=== PATIENT | female | born 1955 | race Caucasian/White ===

== ENCOUNTER 2017-06-17 06:04 | Day surgery (SDC) | payer OTHER ==
[2017-06-16 11:12] VITALS: BMI 36.7
[2017-06-17] MEDS ORDERED: Fentanyl 100 MCG/2 ML VIAL ONE (07:30)
[2017-06-17] MEDS ORDERED: Propofol 200 MG/20 ML VIAL ONE (16:00)
[2017-06-17] MEDS ORDERED: Lidocaine 1% PF 5 ML VIAL ONE (16:00)
--- NOTE | 2017-06-17 17:06 | OP ---
DATE OF SERVICE: 06/17/2017 PROCEDURE: Esophagogastroduodenoscopy with balloon dilatation. SURGEON: Momo Kaiser M.D. ANESTHESIA: Given by Anesthesiology Department. PREOPERATIVE DIAGNOSES: 1. Dysphagia. 2. Gastroesophageal reflux. POSTOPERATIVE DIAGNOSES: 1. Distal esophageal stricture. 2. Small hiatal hernia. 3. Otherwise normal upper endoscopy. PROCEDURE IN DETAIL: Written consent was obtained prior to procedure. After adequate sedation, the forward-viewing endoscope was advanced down the stomach under direct vision to the second portion of duodenum. Both the second portion and the bulb appeared normal. The pylorus was patent. The gastri c antrum, body, fundus, and cardia all appeared normal. Retroflexion showed a small hiatal hernia wi th a 2 cm waist. The squamocolumnar was noted at approximately 40 cm from the incisors. A concentri c stricture was noted in the lower esophagus. The mid and upper esophagus appeared normal. The endo scope was removed. Dilatation was then performed using a 54-Telugu Spears. Repeat endoscopy did no t show any complication. Repeat dilatation was then performed with a 60-Telugu Spears. The patient tolerated procedure well without any immediate complication. ASSESSMENT: 1. Lower esophageal stricture, mild, status post dilatation with 54 Telugu and a 60-Telugu Spears d ilator. 2. Small hiatal hernia. 3. Otherwise normal upper endoscopy. RECOMMENDATIONS: Continue PPI.
--- NOTE | 2017-06-17 17:55 | OP ---
DATE OF SERVICE: 06/17/2017 PROCEDURES: Colonoscopy with snare polypectomy, biopsy, and dye injection. PREOPERATIVE DIAGNOSIS: History of colon polyps. POSTOPERATIVE DIAGNOSES: 1. A 2 cm flat carpet polyp at the hepatic flexure, not removed. 2. Distal transverse colon polyp, status post polypectomy. 3. Sigmoid diverticulosis coli. PROCEDURE IN DETAIL: A written consent was obtained prior to procedure. After adequate sedation, a rectal exam was performed and it was normal. The endoscope was advanced to the cecum. The quality o f the bowel prep was good. The appendiceal orifice and ileocecal valve were identified and appeared normal. The cecum appeared normal. The ascending appeared normal. In the hepatic flexure, a 2 x 2. 5 cm flat sigmoid lobulated polyp was noted straddling a fold. There was a linear crater in the midd le. Superficial biopsies were obtained in the middle of the crater. A tattoo injection was made at 2 different sites near the polyp to margarita the area. In the distal transverse colon, an 8 mm sessile p olyp was noted then it was removed with electrocautery with good hemostasis. The polyp was not retri eved. The descending colon appeared normal. Scattered diverticula were noted in the sigmoid colon. The rectosigmoid colon and rectal vault were normal including retroflexion. The patient tolerated t he procedure well. ASSESSMENT: 1. A 2 x 2.5 carpet polyp at the hepatic flexure, area marked with tattoo. Polyp has a linear cente r crater and was biopsied to exclude malignancy. 2. Distal transverse colon polyp, status post polypectomy, but not retrieved. 3. Sigmoid diverticulosis coli. RECOMMENDATIONS: Await biopsy result, surgery versus referral for colonoscopy with EMR pending biops y result.
== END 2017-06-17 09:53 | disposition home or self-care (01) ==
LOC: SDC 06:04
PROVIDERS: ATTEND Internal Medicine Gastroenterology
PROC: 0DBL8ZX Excision of Transverse Colon, Via Natural or Artificial Opening Endoscopic, Diagnostic (ICD-10-PCS; principal; 2017-06-17)
PROC: 3E0H8GC Introduction of Other Therapeutic Substance into Lower GI, Via Natural or Artificial Opening Endoscopic (ICD-10-PCS; principal; 2017-06-17)
PROC: 0D758ZZ Dilation of Esophagus, Via Natural or Artificial Opening Endoscopic (ICD-10-PCS; principal; 2017-06-17)
DX: Z12.11 Encounter for screening for malignant neoplasm of colon (principal); D12.3 Benign neoplasm of transverse colon; K57.30 Diverticulosis of large intestine without perforation or abscess without bleeding; K44.9 Diaphragmatic hernia without obstruction or gangrene; K21.9 Gastro-esophageal reflux disease without esophagitis; R11.0 Nausea; E78.5 Hyperlipidemia, unspecified; F32.9 Major depressive disorder, single episode, unspecified; I48.91 Unspecified atrial fibrillation; F41.9 Anxiety disorder, unspecified; I10 Essential (primary) hypertension; E03.9 Hypothyroidism, unspecified; Z79.51 Long term (current) use of inhaled steroids; Z79.82 Long term (current) use of aspirin; Z79.899 Other long term (current) drug therapy; Z88.8 Allergy status to other drugs, medicaments and biological substances; Z98.1 Arthrodesis status; Z98.42 Cataract extraction status, left eye; Z98.41 Cataract extraction status, right eye; Z95.810 Presence of automatic (implantable) cardiac defibrillator; Z96.1 Presence of intraocular lens; Z90.710 Acquired absence of both cervix and uterus; Z90.89 Acquired absence of other organs; Z98.890 Other specified postprocedural states; Z86.010 Personal history of colon polyps
CPT/HCPCS: 88305; J2001; J2704; J3010

== ENCOUNTER 2017-06-19 23:36 | Emergency (ER) | payer OTHER ==
[2017-06-20 01:43] LABS: #Basophils 0.1 thou/uL (0.0-0.2); #Eosinphils 0.3 thou/uL (0.0-0.7); #Lymphocytes 3.2 thou/uL (1.20-3.40); #Monocytes 1.1 thou/uL (0.11-0.59); #Neutrophils 6.7 thou/uL (1.40-6.50); %Eosinophils 2.3 % (0.0-10.0); %Lymphocytes 28.5 % (21.0-51.0); %Monocytes 9.4 % (0.0-10.0); Hematocrit 39.5 % (36.0-47.0); Mean Platelet Volume 6.9 fL (7.4-10.4); Red Blood Cell (RBC) Count 4.16 mill/uL (4.20-5.40); White Blood Cell (WBC) Count 11.3 thou/uL (4.8-10.8)
[2017-06-20 02:08] LABS: ALT (SGPT) 18 U/L (8-55); AST (SGOT) 17 U/L (5-34); Alkaline Phosphatase 81 U/L (40-150); Anion Gap 12 mmol/L (10-20); BUN (Urea Nitrogen) 18 mg/dL (9.8-20.1); Bilirubin, Total 0.2 mg/dL (0.2-1.2); Calc. Creatinine Clearance 0 mL/min (70-130); Calcium 9.8 mg/dL (7.8-10.44); Carbon Dioxide 31 mmol/L (23-31); Chloride 101 mmol/L (98-107); Estimated GFR-MDRD 71; Globulin 3.4 g/dL (2.4-3.5); Protein, Total 7.5 g/dL (6.0-8.3)
== END 2017-06-20 05:00 | disposition home or self-care (01) ==
LOC: ERS 23:36
DX: K64.4 Residual hemorrhoidal skin tags (principal); E03.9 Hypothyroidism, unspecified; E78.5 Hyperlipidemia, unspecified; I10 Essential (primary) hypertension; E66.9 Obesity, unspecified; F41.9 Anxiety disorder, unspecified; F32.9 Major depressive disorder, single episode, unspecified
CPT/HCPCS: 36415; 80053; 85025; 99283

== ENCOUNTER 2017-08-13 08:27 | Outpatient (CLI) | payer OTHER ==
[2017-08-13] MEDS ORDERED: Iopamidol 370 76% 100 ML VIAL ONE (09:00)
--- NOTE | 2017-08-13 10:52 | CT ---
CT OF THE THORAX WITH IV CONTRAST: INDICATION: Concern for nodular densities within the lung with cough, congestion, and fever. COMPARISON: Chest radiograph dated 08/11/17. FINDINGS: There are patchy ground-glass airspace opacities seen throughout both lungs suspicious for areas of f ocal pneumonitis or pneumonia. There is a moderate pericardial effusion. No pathologically enlarged mediastinal, hilar, or axillary lymph nodes are evident. There is postprocedural change of AICD lola cement. There is a moderate-sized hiatal hernia. The adrenal glands are unremarkable. There is fat ty infiltration of the liver. Cholecystectomy clips are seen within the bladder fossa. There is tho racolumbar scoliosis. There is scattered degenerative and osteoarthritic change. IMPRESSION: 1. Scattered areas of ground-glass airspace opacity suspicious for multifocal pneumonia. Recommend CT followup to document resolution. 2. Moderate pericardial effusion. 3. Fatty infiltration of the liver. CODE T POS: [facility]
== END 2017-08-13 08:28 | disposition home or self-care (01) ==
LOC: SCSCT 08:27
PROVIDERS: ATTEND Physician Assistant
DX: R93.8 Abnormal findings on diagnostic imaging of other specified body structures (principal); R91.8 Other nonspecific abnormal finding of lung field; I31.3 Pericardial effusion (noninflammatory); K76.0 Fatty (change of) liver, not elsewhere classified
CPT/HCPCS: 71260

== ENCOUNTER 2017-09-08 09:29 | Outpatient (CLI) | payer OTHER ==
[~2017-09-08 09:29] MED LIST: Iopamidol 370 76% 100 ML VIAL ONE
--- NOTE | 2017-09-08 11:31 | CT ---
ADDENDUM: Bilateral hypertrophic changes in the shoulders, stable since exam of 10-07-15. POS: [facility]
== END 2017-09-08 09:30 | disposition home or self-care (01) ==
LOC: SCSCT 09:29
PROVIDERS: ATTEND Physician Assistant
DX: J18.9 Pneumonia, unspecified organism (principal)
CPT/HCPCS: 71260

== ENCOUNTER 2018-02-28 10:17 | Outpatient (CLI) | payer OTHER ==
--- NOTE | 2018-02-28 15:44 | MMO ---
MAMMOGRAM DIGITAL SCREENING BILATERAL: DATE: 02/28/2018 HISTORY: A 62-year-old female for routine bilateral screening mammogram. COMPARISON: 07/07/2016, 06/21/2015 TECHNIQUE: Digital mammographic views. Computer-aided detection (CAD) utilized. FINDINGS: There are scattered areas of fibroglandular density. There is no evidence of suspicious mass, suspicious calcifications, or architectural distortion. The re is no significant interval change since the prior mammogram. IMPRESSION: 1) BIRADS 1- Negative. 2) Recommendation: routine bilateral annual screening mammogram (unless the patient develops suspicio us clinical findings that would warrant earlier imaging follow up). beti [] POS: [facility]
== END 2018-02-28 10:18 | disposition home or self-care (01) ==
LOC: SCSMAMMO 10:17
PROVIDERS: ATTEND Obstetrics & Gynecology
DX: Z12.31 Encounter for screening mammogram for malignant neoplasm of breast (principal)
CPT/HCPCS: 77067

== ENCOUNTER 2018-03-30 09:14 | Outpatient (CLI) | payer OTHER ==
--- NOTE | 2018-03-30 13:55 | NM ---
NUCLEAR MEDICINE STRESS ONLY WITH EJECTION FRACTION: HISTORY: Chest pain. Shortness of breath. COMPARISON: None. TECHNIQUE: The patient was administered 30 millicuries of technetium 99m sestamibi. Only stress imaging was per formed. FINDINGS: Homogeneous distribution of radiotracer. End-diastolic volume is 108 mL. End-systolic volume is 33 mL. CARDIAC DATA: Ejection fraction is 69%. IMPRESSION: 1. Homogeneous distribution of radiotracer. 2. Ejection fraction 69%. POS: [facility]
[2018-03-30] MEDS ORDERED: Regadenoson 0.4 MG/5 ML SYRINGE ONE (15:23)
== END 2018-03-30 09:15 | disposition home or self-care (01) ==
LOC: NM 09:14
PROVIDERS: ATTEND Family Medicine Adult Medicine
DX: R07.89 Other chest pain (principal); R06.02 Shortness of breath
CPT/HCPCS: 78452; 93017; A9500; J2785

== ENCOUNTER 2019-05-10 10:07 | Day surgery (SDC) | payer OTHER ==
[2019-05-09 10:14] VITALS: BMI 37.3
--- NOTE | 2019-05-10 13:17 | OP ---
DATE OF PROCEDURE: 05/10/2019 PROCEDURES PERFORMED: Colonoscopy with snare polypectomy and tattoo injection. PREMEDICATION: Given by Anesthesiology Department. 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 POSTPROCEDURE DIAGNOSES: 1. A 3 x 4 cm flat polyp with evidence of scarring at the base of right hepatic flexure near previous tattoo. 2. Small 4 mm sessile polyp in the sigmoid, status post polypectomy. DESCRIPTION OF PROCEDURE: Written consents were obtained prior to procedure. After adequate sedation, rectal exam performed was normal. The endoscope was advanced to the cecum. The quality of the bowel prep was good. The cecum and ascending colon appeared normal. Near the hepatic flexure, at the previously tattooed area, a 3 x 4 semi-raised flat polyp was noted with finger-like projection with area of scarring at the base. Further tattoo was placed in the local area. The transverse, descending colon appeared normal. In the sigmoid colon, a small 4 mm sessile polyp was noted and was removed with a cold snare. The polyp was not retrieved. The sigmoid colon was somewhat redundant. The rectosigmoid area was normal including retroflexion. The patient tolerated the procedure well. ASSESSMENT: 1. A 3 x 4 flat carpet like polyp near hepatic flexure, status post previous endoscopic mucosal resection in 2017. 2. Sigmoid polyp, removed but not retrieved. 3. Sigmoid diverticulosis. RECOMMENDATION: Refer to surgery as she had EMR in [place] now with recurrence. Job ID: [id number] [facility] HOSPITALEdilberto
== END 2019-05-10 13:55 | disposition home or self-care (01) ==
LOC: SDC 10:07
PROVIDERS: ATTEND Internal Medicine Gastroenterology
PROC: 0DBN8ZX Excision of Sigmoid Colon, Via Natural or Artificial Opening Endoscopic, Diagnostic (ICD-10-PCS; principal; 2019-05-10)
PROC: 3E0H8GC Introduction of Other Therapeutic Substance into Lower GI, Via Natural or Artificial Opening Endoscopic (ICD-10-PCS; principal; 2019-05-10)
DX: Z12.11 Encounter for screening for malignant neoplasm of colon (principal); K63.5 Polyp of colon; K57.30 Diverticulosis of large intestine without perforation or abscess without bleeding; F41.9 Anxiety disorder, unspecified; I48.91 Unspecified atrial fibrillation; F32.9 Major depressive disorder, single episode, unspecified; K21.9 Gastro-esophageal reflux disease without esophagitis; E78.5 Hyperlipidemia, unspecified; I10 Essential (primary) hypertension; E03.9 Hypothyroidism, unspecified; Z86.010 Personal history of colon polyps; Z79.82 Long term (current) use of aspirin; Z79.899 Other long term (current) drug therapy; Z88.2 Allergy status to sulfonamides; Z88.8 Allergy status to other drugs, medicaments and biological substances; Z95.810 Presence of automatic (implantable) cardiac defibrillator

== ENCOUNTER 2019-06-29 13:52 | Outpatient (CLI) | payer OTHER ==
[2019-06-29 15:30] LABS: #Basophils 0.1 thou/uL (0.0-0.2); #Eosinphils 0.3 thou/uL (0.0-0.7); #Lymphocytes 2.6 thou/uL (1.20-3.40); #Monocytes 0.8 thou/uL (0.11-0.59); #Neutrophils 4.3 thou/uL (1.40-6.50); %Basophils 1.7 % (0.0-1.0); %Eosinophils 4.1 % (0.0-10.0); %Monocytes 9.6 % (0.0-10.0); %Neutrophils 52.6 % (42.0-75.0); Hemoglobin 14.6 g/dL (12.0-16.0); Mean Corpuscular HGB CONC 34.3 g/dL (32.0-36.0); Mean Corpuscular Hemoglobin 32.9 pg (27.0-31.0); Mean Corpuscular Volume 95.9 fL (78.0-98.0); Mean Platelet Volume 6.7 fL (7.4-10.4); Platelet Count 452 thou/uL (130-400); RBC Distribution Width 12.4 % (11.5-14.5); Red Blood Cell (RBC) Count 4.44 mill/uL (4.20-5.40); White Blood Cell (WBC) Count 8.2 thou/uL (4.8-10.8)
[2019-06-29 15:39] LABS: Hemoglobin A1c 5.2 % (4.0-6.0)
[2019-06-29 15:55] LABS: Anion Gap 12 mmol/L (10-20); BUN (Urea Nitrogen) 16 mg/dL (9.8-20.1); Calc. Creatinine Clearance 0 mL/min (70-130); Carbon Dioxide 29 mmol/L (23-31); Chloride 103 mmol/L (98-107); Estimated GFR-MDRD 53; Glucose 79 mg/dL (80-115); Potassium 4.1 mmol/L (3.5-5.1); Sodium 140 mmol/L (136-145)
== END 2019-06-29 13:53 | disposition home or self-care (01) ==
LOC: LABBT 13:52
PROVIDERS: ATTEND Surgery
DX: Z01.812 Encounter for preprocedural laboratory examination (principal); K63.9 Disease of intestine, unspecified
CPT/HCPCS: 80048; 83036; 85025

== ENCOUNTER 2019-06-30 13:15 | Inpatient (IN) | payer OTHER ==
[2019-06-29 14:18] VITALS: BMI 36.7
[2019-07-06] MEDS ORDERED: Midazolam HCl 2 mg/2 ml Vial ONE ×2 (06:35→07:10)
[2019-07-06] MEDS ORDERED: Fentanyl 100 MCG/2 ML VIAL ONE ×3 (06:35→10:05)
[2019-07-06] MEDS ORDERED: ceFOXitin 2 GM/50 ML Duplex BAG ONE (06:42)
[2019-07-06] MEDS ORDERED: Sodium Chloride 0.9% 0 ML ONE (06:42)
[2019-07-06] MEDS ORDERED: Ondansetron PF 4 MG/2 ML Vial ONE ×2 (07:19→11:10)
[2019-07-06] MEDS ORDERED: cefOXitin 2 GM VIAL ONE (09:15)
[2019-07-06] MEDS ORDERED: SUGAMMADEX SODIUM 500 MG/5 ML VIAL ONE (09:38)
[2019-07-06] MEDS ORDERED: HYDROmorphone 2 MG/ML VIAL SLOW IVP PRN (09:58)
[2019-07-06] MEDS ORDERED: Promethazine HCl 25 MG/ML VIAL SLOW IVP PRN (09:58)
[2019-07-06] MEDS ORDERED: Ondansetron HCl/PF 4 MG/2 ML Vial IVP PRN (09:58)
[2019-07-06] MEDS ORDERED: Promethazine HCl 25 MG/ML VIAL IM PRN ×2 (09:58→11:49)
[2019-07-06] MEDS ORDERED: HYDROmorphone 0.5 MG/0.5 ML SYRINGE ONE (10:05)
[2019-07-06] MEDS ORDERED: D5 1/2 NS w/20 mEq KCL 1,000 ML ONE (10:06)
[2019-07-06] MEDS ORDERED: Promethazine HCl 25 MG/ML VIAL ONE (10:07)
--- NOTE | 2019-07-06 10:17 | OP ---
DATE OF PROCEDURE: 07/06/2019 PREOPERATIVE DIAGNOSIS: Hepatic flexure colon mass. POSTOPERATIVE DIAGNOSIS: Hepatic flexure colon mass. PROCEDURE PERFORMED: Laparoscopic converted to open right colectomy with isoperistaltic ileocolonic anastomosis. ANESTHESIA: General. BLOOD LOSS: 150 mL. COMPLICATIONS: None. FINDINGS: The patient had a very tortuous ascending colon and significant adhesions in this area from prior surgery. She also after taken the ileocolic vessels near their base, had ischemia to the terminal ileum, so more proximal staple line had to be performed. DESCRIPTION OF PROCEDURE: The patient was taken to the operating room and laid supine on the operating room table. She underwent preop placement of TAP blocks in the holding area, taken to the operating room and laid supine on operating room table. After general anesthetic was obtained, a Dozier was placed. The abdomen was prepped and draped in a sterile fashion. Left subcostal 5 mm Optiview trocar was placed in usual fashion. High-flow pneumoperitoneum was obtained. Left lateral 11 mm assist port was placed. Camera port was placed in left umbilicus. Robot assist ports were placed in left lower quadrant. The 5 mm subcostal port switched out to the robot stapler port. The robot was brought in and all ports were docked to the robot. The patient had some adhesions in the umbilicus. The omentum was fused to the posterior umbilical fascia. Some of these adhesions were taken down. This was very bulky omental fat in this area. There were also fatty adhesions over the top of the cecum down into the pelvis. The cecum was very high and very tortuous. The peritoneum was incised on the medial aspect of the ascending colon mesentery and taken using the robot vessel sealer. Dissection towards the duodenum was very difficult due to the tortuous nature of the colon and multiple interloop adhesions. Decision was made to open. There was also more ischemia than typically seen in the area of the terminal ileum after taken the ileocolic vessel. Midline incision was made. All adhesions were taken down in the abdomen. The hepatic flexure was fully mobilized. The duodenum was excluded from the dissection and not injured. There was ischemia to the last 12 inches or so of the small intestines, so this made for a more proximal staple line. The proximal transverse colon was fully dissected. AUTUMN 75 stapler was fired across the small bowel area of no ischemia and across the proximal transverse colon. The resultant of final mesentery was taken using the Impact LigaSure. An isoperistaltic anastomosis was performed using a AUTUMN 75 stapler. The common enterotomy was closed using Vicryl suture. The mesenteric defect was closed using silk sutures. The small bowel was run proximally to the ligament of Treitz without evidence of further injury. There was no bleeding in the abdomen and again all adhesions were taken down, so there was no tension on the anastomosis. The abdomen was irrigated. There was no ongoing bleeding. Surgeon and all assists changed gloves. The midline fascia was closed using #1 PDS from the top and bottom and tied in the middle. Subcutaneous tissues were irrigated and closed using 4-0 Monocryl and Dermabond. All other incisions were closed using 4-0 Monocryl and Dermabond. A GraNee needle and 0 Vicryl tie had been used to close the robot stapler port prior to opening. All instrument counts, needle counts, lap counts were correct. The patient was sent to Recovery in stable condition. Job ID: [id number]
[2019-07-06] MEDS: D5 1/2 NS w/20 mEq KCL 1,000 ML IV SCH ×2 (11:35→17:34)
[2019-07-06] MEDS ORDERED: hydrALAZINE 20 MG/ML VIAL SLOW IVP PRN (11:49)
[2019-07-06] MEDS ORDERED: Ondansetron PF 4 MG/2 ML Vial IVP PRN (11:49)
[2019-07-06] MEDS ORDERED: Fentanyl 100 MCG/2 ML VIAL SLOW IVP PRN (11:49)
[2019-07-06] MEDS ORDERED: Acetaminophen 1,000 MG in Premix Bag 1 BAG IVPB SCH (12:00)
[2019-07-06] MEDS ORDERED: ePHEDrine/0.9% NaCl/PF SYRINGE 50 mg/10 ml ONE (13:46)
[2019-07-06] MEDS ORDERED: Ketorolac Tromethamine 30 MG/ML VIAL ONE (13:46)
[2019-07-06] MEDS ORDERED: PROPOFOL 200 MG/20 ML VIAL ONE (13:46)
[2019-07-06] MEDS ORDERED: Rocuronium Bromide 10 MG/ML (10ML VIAL) ONE (13:46)
[2019-07-06] MEDS ORDERED: Lidocaine 1% PF 5 ML VIAL ONE (13:46)
[2019-07-06] MEDS ORDERED: Metoclopramide HCl 10 MG/2 ML VIAL ONE (13:46)
[2019-07-06] MEDS ORDERED: Glycopyrrolate 0.2 MG/ML 5 ML SYRINGE ONE (13:46)
[2019-07-06] MEDS ORDERED: PHENYLEPHRINE-NS 100 MCG/ML 10 ML SYRINGE ONE (13:46)
[2019-07-06] MEDS ORDERED: Dexamethasone 20 MG/5 ML VIAL ONE (13:46)
[2019-07-06] MEDS ORDERED: Bupivacaine HCl 0.5%/Epinephrine 1:200,000/PF 30 ml Vial ONE (13:47)
[2019-07-06] MEDS ORDERED: cefOXitin Sodium/Dextrose,Iso 2 GM in Premix Bag 1 BAG IVPB SCH (14:00)
[2019-07-06] MEDS ORDERED: cefOXitin 2 GM in Sodium Chloride 0.9% 100 ML IVPB SCH (14:00)
[2019-07-06] MEDS: Acetaminophen 1,000 MG in Premix Bag 1 BAG IVPB SCH ×2 (14:09→20:10)
[2019-07-06] MEDS: Fentanyl 100 MCG/2 ML VIAL SLOW IVP PRN ×4 (15:43→23:10)
[2019-07-06] MEDS: cefOXitin Sodium/Dextrose,Iso 2 GM in Premix Bag 1 BAG IVPB SCH (17:18)
[2019-07-06] MEDS: Enoxaparin Sodium 40 MG/0.4 ML SYRINGE SC SCH (20:31)
[2019-07-06] MEDS: Flecainide 50 MG TAB PO SCH (20:31)
[2019-07-06] MEDS: NIFEdipine XL 60 MG TAB PO SCH (20:31)
[2019-07-06] MEDS: Famotidine/PF 20 mg/2ml Vial SLOW IVP SCH (20:31)
[2019-07-06] MEDS: Famotidine 20 MG TAB PO SCH (20:32)
[2019-07-07] MEDS: cefOXitin Sodium/Dextrose,Iso 2 GM in Premix Bag 1 BAG IVPB SCH ×3 (00:25→18:42)
[2019-07-07] MEDS ORDERED: Melatonin 3 MG TAB PO SCH (00:30)
[2019-07-07] MEDS: Acetaminophen 1,000 MG in Premix Bag 1 BAG IVPB SCH ×3 (01:26→19:26)
[2019-07-07] MEDS: D5 1/2 NS w/20 mEq KCL 1,000 ML IV SCH ×2 (01:26→13:12)
[2019-07-07] MEDS: Fentanyl 100 MCG/2 ML VIAL SLOW IVP PRN ×6 (01:52→13:11)
[2019-07-07 05:36] LABS: #Lymphocytes 2.4 thou/uL (1.20-3.40); #Monocytes 1.4 thou/uL (0.11-0.59); #Neutrophils 11.1 thou/uL (1.40-6.50); %Basophils 0.1 % (0.0-1.0); %Eosinophils 0.2 % (0.0-10.0); %Monocytes 9.2 % (0.0-10.0); %Neutrophils 74.6 % (42.0-75.0); Hemoglobin 11.1 g/dL (12.0-16.0); Mean Corpuscular HGB CONC 33.4 g/dL (32.0-36.0); Mean Corpuscular Hemoglobin 32.6 pg (27.0-31.0); Mean Corpuscular Volume 97.5 fL (78.0-98.0); Mean Platelet Volume 7.4 fL (7.4-10.4); Platelet Count 303 thou/uL (130-400); RBC Distribution Width 12.1 % (11.5-14.5); White Blood Cell (WBC) Count 14.9 thou/uL (4.8-10.8)
[2019-07-07 05:50] LABS: Anion Gap 9 mmol/L (10-20); BUN (Urea Nitrogen) 7 mg/dL (9.8-20.1); Calc. Creatinine Clearance 120 mL/min (70-130); Calcium 8.5 mg/dL (7.8-10.44); Carbon Dioxide 27 mmol/L (23-31); Chloride 106 mmol/L (98-107); Estimated GFR-MDRD 65; Glucose 110 mg/dL (80-115); Potassium 3.9 mmol/L (3.5-5.1); Sodium 138 mmol/L (136-145)
--- NOTE | 2019-07-07 07:09 | PDOC.GSPN ---
Surgery Progress Note: Subj - Subjective Patient reports: still having pain Narrative: Ms. Thakkar is a 63 year old female who is POD #1 from laproscopic conversion to open right colectomy with ileocolonic anastomosis. She reports persistent pain this morning, currently rating it a 6/10 compared to "12/10" yesterday. Pain is being treated with Tylenol and Fentanyl, which helps. She has not passed flatus or bowel movement yet. Tolerating clear liquids very well. She ambulated to the nursing station yesterday without issues. Dozier is still in place. Patient denies chest pain, nausea, vomiting, dyspnea, dizziness, fever, and chills. Surgery Progress Note: Obj - Vital signs Vital signs: Vital Signs - Most Recent Temp Pulse Resp BP Pulse Ox 99.2 F 91 18 117/72 93 L 07/07/19 03:50 07/07/19 03:50 07/07/19 03:50 07/07/19 03:50 07/07/19 03:50 - Physical Exam General: moderate pain ENT: normal mucosa Cardiovascular: regular rate and rhythm, no murmur, other (No edema of lower extremities. Pedal pulses 2+ bilaterally and symmetrically.) Respiratory: clear to auscultation, normal expansion, normal respiratory effort , breath sounds present (No rales, rhonchi, or wheezes.) Abdomen: soft, nondistended, tender, other (Absent bowel sounds.) Integumentary: no rash Psychiatric: oriented to time, oriented to person, oriented to place Wound: dressing clean,dry,intact, healing well (No surrounding erythema, purulent discharge, or bleeding. Mild brusing around incisions is present.) Surgery Progress Note: Results - Labs Result Diagrams: 07/07/19 05:00 07/07/19 05:00 Lab results: Laboratory Results - last 24 hr 07/07/19 07/07/19 05:00 05:00 WBC 14.9 H RBC 3.40 L Hgb 11.1 L Hct 33.2 L MCV 97.5 MCH 32.6 H MCHC 33.4 RDW 12.1 Plt Count 303 MPV 7.4 Neutrophils % 74.6 Lymphocytes % 16.0 L Monocytes % 9.2 Eosinophils % 0.2 Basophils % 0.1 Neutrophils # 11.1 H Lymphocytes # 2.4 Monocytes # 1.4 H Eosinophils # 0.0 Basophils # 0.0 Sodium 138 Potassium 3.9 Chloride 106 Carbon Dioxide 27 Anion Gap 9 L BUN 7 L Creatinine 0.88 Estimated GFR (MDRD) 65 Glucose 110 Calcium 8.5 Surgery Progress Note: A/P - Plan Plan: Ms. Thakkar is a 63 year old female who is POD #1 from laproscopic conversion to open right colectomy with ileocolonic anastomosis. -Continues to have pain. Eating and ambulating well. No bowel movement or flatus. -May advance diet to full liquids. -Monitor for bowel movements and flatus. -Discontinue Dozier catheter -Monitor pain -Continue ambulation and walking Hyperthyroidism -Currently on Levothyroxine & Otley Thyroid Addendum - Physician - Physician Attestation Date/Time: 07/07/19 3148 I personally performed or re-performed the physical examination and medical decision making. I have verified all student documentation or findings, including history, physical exam and/or medical decision making. Pain not very well controlled. will have anesthesia put her on a HOP STRAINER
[2019-07-07] MEDS: Levothyroxine 150 MCG TAB PO SCH (08:22)
[2019-07-07] MEDS: Thyroid 60 MG TAB PO SCH (08:22)
[2019-07-07] MEDS: Famotidine 20 MG TAB PO SCH ×2 (08:22→20:21)
[2019-07-07] MEDS: NIFEdipine XL 60 MG TAB PO SCH ×2 (08:22→20:21)
[2019-07-07] MEDS: Famotidine/PF 20 mg/2ml Vial SLOW IVP SCH ×2 (08:23→22:28)
[2019-07-07] MEDS: Flecainide 50 MG TAB PO SCH ×2 (11:01→20:22)
[2019-07-07] MEDS ORDERED: HYDROcodone/Acetaminophen 7.5/325 mg Tablet PO PRN (12:35)
[2019-07-07] MEDS ORDERED: Ondansetron PF 4 MG/2 ML Vial IVP PRN (15:33)
[2019-07-07] MEDS ORDERED: Naloxone HCl 0.4 mg/ml Vial IV PRN ×2 (15:33→16:49)
[2019-07-07] MEDS ORDERED: Promethazine HCl 25 MG/ML VIAL IM PRN (15:33)
[2019-07-07] MEDS ORDERED: diphenhydrAMINE 50 MG/ML VIAL IM PRN ×2 (15:33→16:49)
[2019-07-07] MEDS ORDERED: Zolpidem Tartrate 5 MG TAB PO PRN ×2 (15:33→16:49)
[2019-07-07] MEDS ORDERED: fentaNYL Citrate/PF 2,000 MCG in Sodium Chloride 0.9% 60 ML IV PRN (15:33)
[2019-07-07] MEDS ORDERED: diphenhydrAMINE 50 MG/ML VIAL IVP PRN ×2 (15:33→16:49)
[2019-07-07] MEDS ORDERED: diphenhydrAMINE 25 MG CAP PO PRN ×2 (15:33→16:49)
[2019-07-07] MEDS ORDERED: Communication Order-Pharmacy FS SCH ×2 (15:45→17:00)
[2019-07-07] MEDS: fentaNYL Citrate/PF 2,000 MCG in Sodium Chloride 0.9% 60 ML IV PRN (18:34)
[2019-07-07] MEDS: Enoxaparin Sodium 40 MG/0.4 ML SYRINGE SC SCH (20:21)
[2019-07-07] MEDS: Melatonin 3 MG TAB PO PRN (22:00)
[2019-07-08] MEDS: Acetaminophen 1,000 MG in Premix Bag 1 BAG IVPB SCH ×5 (00:06→23:28)
[2019-07-08] MEDS: D5 1/2 NS w/20 mEq KCL 1,000 ML IV SCH ×2 (00:07→17:24)
[2019-07-08] MEDS: cefOXitin Sodium/Dextrose,Iso 2 GM in Premix Bag 1 BAG IVPB SCH ×3 (00:07→17:23)
[2019-07-08 05:21] LABS: #Basophils 0.1 thou/uL (0.0-0.2); #Eosinphils 0.7 thou/uL (0.0-0.7); #Lymphocytes 3.5 thou/uL (1.20-3.40); #Monocytes 1.7 thou/uL (0.11-0.59); #Neutrophils 9.3 thou/uL (1.40-6.50); %Basophils 0.5 % (0.0-1.0); %Eosinophils 4.9 % (0.0-10.0); %Lymphocytes 22.7 % (21.0-51.0); %Monocytes 11.1 % (0.0-10.0); %Neutrophils 60.8 % (42.0-75.0); Hemoglobin 11.6 g/dL (12.0-16.0); Mean Corpuscular HGB CONC 33.7 g/dL (32.0-36.0); Mean Corpuscular Hemoglobin 33.6 pg (27.0-31.0); Mean Corpuscular Volume 99.7 fL (78.0-98.0); Mean Platelet Volume 8.1 fL (7.4-10.4); Platelet Count 302 thou/uL (130-400); RBC Distribution Width 12.3 % (11.5-14.5); Red Blood Cell (RBC) Count 3.45 mill/uL (4.20-5.40); White Blood Cell (WBC) Count 15.3 thou/uL (4.8-10.8)
[2019-07-08 05:42] LABS: Anion Gap 14 mmol/L (10-20); BUN (Urea Nitrogen) 7 mg/dL (9.8-20.1); Calc. Creatinine Clearance 124 mL/min (70-130); Calcium 9.1 mg/dL (7.8-10.44); Carbon Dioxide 23 mmol/L (23-31); Chloride 107 mmol/L (98-107); Estimated GFR-MDRD 68; Glucose 98 mg/dL (80-115); Potassium 4.3 mmol/L (3.5-5.1); Sodium 140 mmol/L (136-145)
--- NOTE | 2019-07-08 08:45 | PRG ---
DATE OF SERVICE: 07/08/2019 SUBJECTIVE: Ms. Thakkar's pain is better controlled with the WINDING LATHE OPERATOR. Her family notes that she was more sedated last night, but she has still been walking, having loose stools. OBJECTIVE: VITAL SIGNS: She is afebrile. Her pulse is 95 to 103, respirations are 12, O2 saturation is 92 on 2 L, it dropped overnight when she was not wearing her CPAP. Blood pressure 110/74. She is voiding regularly with the catheter out. She has had a couple loose stools. ABDOMEN: Soft, minimally distended. Occasional bowel sounds. Midline wound is healing well. There is some bruising, but no infection. LABORATORY DATA: White blood cell count is 15, hemoglobin 11, and platelet count is 302. Sodium 140, potassium 4.3, and creatinine 0.85. ASSESSMENT: Postop day 2, right colectomy for unresectable polyp, multiple abdominal adhesions, requiring open surgery. PLAN: Continue to encourage ambulation. She has actually been doing very well with that. We will have anesthesia drop her WINDING LATHE OPERATOR dose slightly. Continue full liquids for now. Dr. Henning is going to see her tomorrow for me. I will return on Wednesday. Job ID: [id number]
[2019-07-08] MEDS ORDERED: Saccharomyces boulardii 250 MG CAP PO SCH (09:00)
[2019-07-08] MEDS: NIFEdipine XL 60 MG TAB PO SCH ×2 (09:33→21:24)
[2019-07-08] MEDS: Flecainide 50 MG TAB PO SCH ×2 (09:33→21:25)
[2019-07-08] MEDS: DULoxetine 30 MG CAP PO SCH (09:34)
[2019-07-08] MEDS: Thyroid 60 MG TAB PO SCH (09:34)
[2019-07-08] MEDS: Levothyroxine 150 MCG TAB PO SCH (09:34)
[2019-07-08] MEDS: Famotidine 20 MG TAB PO SCH ×2 (09:34→21:24)
[2019-07-08] MEDS: PARoxetine 20 MG TAB PO SCH (09:34)
[2019-07-08] MEDS: Famotidine/PF 20 mg/2ml Vial SLOW IVP SCH ×2 (09:40→21:25)
[2019-07-08] MEDS: fentaNYL Citrate/PF 2,000 MCG in Sodium Chloride 0.9% 60 ML IV PRN (18:36)
[2019-07-08] MEDS: Enoxaparin Sodium 40 MG/0.4 ML SYRINGE SC SCH (21:24)
[2019-07-08] MEDS: Ondansetron PF 4 MG/2 ML Vial IVP PRN (23:28)
--- NOTE | 2019-07-08 23:58 | PRG ---
DATE OF SERVICE: 07/08/2019 SUBJECTIVE: The patient was seen this evening during rounds. Trauma and Dr. Henning are covering for Dr. Glasgow. At the time of my evaluation, the patient reported she had had multiple loose stools and had a little bit of nausea, but generally she reported she felt like she was getting better. She is ambulating and sitting up in a chair regularly. OBJECTIVE: VITAL SIGNS: Temperature 97.8, pulse 115, respirations 16, oxygen saturation 94% on room air, blood pressure 127/68. GENERAL: Well-appearing, middle-aged female, lying in bed with no signs of acute distress. PULMONARY: Equal chest rise and fall. No signs of acute respiratory distress. ASSESSMENT: Postop day #2, status post open right colectomy with ileocolic anastomosis secondary to hepatic flexure colon mass. PLAN: Continue current full liquid diet as recommended by Dr. Glasgow. Continue fentanyl ELECTRONIC DRAFTER overnight. We will consider transitioning over to oral pain medications tomorrow. Continue current home medications. The patient requesting to have Florastor b.i.d. as that is how she takes it at home. Dose adjustments will be made. Continue walking and sitting up in chair as much as possible. Job ID: [id number]
[2019-07-09] MEDS: cefOXitin Sodium/Dextrose,Iso 2 GM in Premix Bag 1 BAG IVPB SCH ×4 (00:02→23:54)
[2019-07-09] MEDS: Acetaminophen 1,000 MG in Premix Bag 1 BAG IVPB SCH (05:54)
[2019-07-09] MEDS: Famotidine/PF 20 mg/2ml Vial SLOW IVP SCH ×2 (09:14→21:12)
[2019-07-09] MEDS ORDERED: traMADol HCl 50 MG TAB PO SCH (09:45)
[2019-07-09] MEDS: Ondansetron PF 4 MG/2 ML Vial IVP PRN (10:01)
[2019-07-09] MEDS: Famotidine 20 MG TAB PO SCH ×2 (10:02→21:11)
[2019-07-09] MEDS: DULoxetine 30 MG CAP PO SCH (10:02)
[2019-07-09] MEDS: Flecainide 50 MG TAB PO SCH ×2 (10:02→21:11)
[2019-07-09] MEDS: Saccharomyces boulardii 250 MG CAP PO SCH ×2 (10:02→21:10)
[2019-07-09] MEDS: PARoxetine 20 MG TAB PO SCH (10:02)
[2019-07-09] MEDS: NIFEdipine XL 60 MG TAB PO SCH ×2 (10:03→21:10)
[2019-07-09] MEDS: Thyroid 60 MG TAB PO SCH (10:03)
[2019-07-09] MEDS: Levothyroxine 150 MCG TAB PO SCH (10:03)
[2019-07-09] MEDS: traMADol HCl 50 MG TAB PO SCH ×3 (10:17→22:09)
[2019-07-09] MEDS: Promethazine HCl 25 MG/ML VIAL IM PRN (11:46)
[2019-07-09] MEDS: Acetaminophen 500 MG TAB PO SCH ×3 (11:47→23:54)
--- NOTE | 2019-07-09 14:37 | PRG ---
DATE OF SERVICE: 07/09/2019 SUBJECTIVE: Ms. Thakkar is a 63-year-old woman, postoperative day #3, status post laparoscopic converted to open right colectomy with primary anastomosis. The patient reports better pain control today on using EARLY CHILDHOOD TEACHER. She reports multiple loose bowel movements, but denies any flatus. She denies any nausea or vomiting. Urinary output is adequate for the patient's age and weight. OBJECTIVE: VITAL SIGNS: Today include blood pressure 112/77, pulse 93, respiratory rate is 16, temperature is 99 degrees Fahrenheit, and oxygen saturation is 95% on 3 L by nasal cannula oxygen. HEENT: Reveals pupils are equal, round, and reactive to light and accommodation. NECK: She has no jugular venous distention noted. HEART: Reveals regular rate and rhythm. No murmurs or gallops auscultated. LUNGS: Clear to auscultation bilaterally. Breathing, regular and unlabored. ABDOMEN: Soft and obese with acceptable incisional tenderness to palpation. She has no peritoneal signs on examination. NEUROLOGIC: Reveals no focal deficits present. Incisions remain intact, clean, and dry. LABORATORY FINDINGS: Today include a CBC with 15,300 white blood cells, hemoglobin and hematocrit are 11.6 and 34.5 respectively, and platelet count is 302,000. Metabolic profile; sodium 140, potassium 4.3, chloride is 107, bicarb is 23, BUN is 7, creatinine is 0.85, and glucose is 98. IMPRESSION: 1. Postop day #3, status post laparoscopic converted to open right colectomy with primary ileocolostomy. 2. The patient is hemodynamically stable. PLAN: 1. Increase activity as the patient is encouraged to ambulate briskly in the hallway to promote better motility including passages of flatus. 2. We will continue with full liquid diet at this time. We will start the patient on oral analgesics and discontinue the EARLY CHILDHOOD TEACHER once adequate pain control was achieved with oral analgesics. Above findings and plan discussed with the patient, who indicates understanding of the information given. I have answered her questions. Job ID: [id number]
[2019-07-09] MEDS: Enoxaparin Sodium 40 MG/0.4 ML SYRINGE SC SCH (21:11)
[2019-07-09] MEDS: Ibuprofen 600 MG TAB PO SCH (22:09)
[2019-07-10] MEDS: fentaNYL Citrate/PF 2,000 MCG in Sodium Chloride 0.9% 60 ML IV PRN (00:52)
--- NOTE | 2019-07-10 01:33 | PRG ---
DATE OF SERVICE: 07/09/2019 SUBJECTIVE: The patient was seen this evening, lying in bed and resting comfortably. She reported her pain was well controlled. She is still having diarrhea. OBJECTIVE: VITAL SIGNS: Temperature 99.3, pulse 103, respirations 18, oxygen saturation 98% on 2 L nasal cannula, blood pressure 114/76. GENERAL: Well-appearing elderly female, lying in bed with no signs of acute distress. PULMONARY: Equal chest rise and fall. No signs of acute respiratory distress. ASSESSMENT: Postop day #3 status post open right colectomy with ileocolic anastomosis due to colon mass. PLAN: Continue current diet and pain regimen. Continue physical and occupational therapy. Continue to mobilize as much as possible. Job ID: [id number]
[2019-07-10] MEDS: traMADol HCl 50 MG TAB PO SCH ×4 (04:19→22:06)
[2019-07-10] MEDS: traMADol HCl 50 MG TAB PO PRN ×2 (04:20→22:07)
[2019-07-10] MEDS: D5 1/2 NS w/20 mEq KCL 1,000 ML IV SCH (04:20)
[2019-07-10] MEDS: Ibuprofen 600 MG TAB PO SCH (05:49)
[2019-07-10] MEDS: Acetaminophen 500 MG TAB PO SCH ×4 (05:49→23:45)
[2019-07-10 06:00] LABS: Band 2 % (5-11); Eosinophils 11 % (0-10); Lymphocytes 26 % (21-51); MDiff Complete? YES; Mean Corpuscular HGB CONC 33.4 g/dL (32.0-36.0); Mean Corpuscular Hemoglobin 32.9 pg (27.0-31.0); Mean Corpuscular Volume 98.3 fL (78.0-98.0); Mean Platelet Volume 7.6 fL (7.4-10.4); Monocytes 7 % (0-10); Neutrophil 54 % (42-75); Platelet Count 316 thou/uL (130-400); RBC Distribution Width 12.1 % (11.5-14.5); Red Blood Cell (RBC) Count 3.03 mill/uL (4.20-5.40); White Blood Cell (WBC) Count 9.3 thou/uL (4.8-10.8)
[2019-07-10] MEDS: Thyroid 60 MG TAB PO SCH (07:58)
[2019-07-10] MEDS: Levothyroxine 150 MCG TAB PO SCH (07:58)
[2019-07-10] MEDS: cefOXitin Sodium/Dextrose,Iso 2 GM in Premix Bag 1 BAG IVPB SCH (08:00)
[2019-07-10] MEDS ORDERED: Ibuprofen 600 MG TAB PO PRN (09:03)
[2019-07-10] MEDS: Saccharomyces boulardii 250 MG CAP PO SCH ×2 (10:14→20:29)
[2019-07-10] MEDS: Flecainide 50 MG TAB PO SCH ×2 (10:14→20:28)
[2019-07-10] MEDS: NIFEdipine XL 60 MG TAB PO SCH ×2 (10:14→20:29)
[2019-07-10] MEDS: DULoxetine 30 MG CAP PO SCH (10:14)
[2019-07-10] MEDS: PARoxetine 20 MG TAB PO SCH (10:14)
[2019-07-10] MEDS: Famotidine 20 MG TAB PO SCH ×2 (10:14→20:28)
[2019-07-10] MEDS: Famotidine/PF 20 mg/2ml Vial SLOW IVP SCH ×2 (10:15→20:30)
[2019-07-10] MEDS: Ondansetron PF 4 MG/2 ML Vial IVP PRN (10:19)
[2019-07-10] MEDS ORDERED: HYDROcodone/Acetaminophen 10/325 mg Tablet PO PRN ×2 (11:49)
[2019-07-10] MEDS ORDERED: Fentanyl 100 MCG/2 ML VIAL SLOW IVP PRN (11:51)
[2019-07-10] MEDS: Promethazine HCl 25 MG/ML VIAL IM PRN ×2 (11:52→18:26)
--- NOTE | 2019-07-10 13:34 | PDOC.GSPN ---
Surgery Progress Note: Subj - Subjective Patient reports: no new complaints, tolerating liquids well, pain is less Surgery Progress Note: Obj - Vital signs Vital signs: Vital Signs - Most Recent Temp Pulse Resp BP Pulse Ox 97.8 F 96 16 113/77 94 L 07/10/19 11:45 07/10/19 11:45 07/10/19 11:45 07/10/19 11:45 07/10/19 11:45 - Physical Exam General: no distress Cardiovascular: regular rate and rhythm Respiratory: clear to auscultation Abdomen: soft, appropriately tender Wound: healing well Surgery Progress Note: Results - Labs Result Diagrams: 07/10/19 05:08 07/08/19 05:05 Lab results: Laboratory Results - last 24 hr 07/10/19 05:08 WBC 9.3 RBC 3.03 L Hgb 10.0 L Hct 29.8 L MCV 98.3 H MCH 32.9 H MCHC 33.4 RDW 12.1 Plt Count 316 MPV 7.6 Neutrophils % (Manual) 54 Band Neuts % (Manual) 2 L Lymphocytes % (Manual) 26 Monocytes % (Manual) 7 Eosinophils % (Manual) 11 H Surgery Progress Note: A/P - Problem (1) Colon polyp Current Visit: Yes Code(s): K63.5 - POLYP OF COLON Status: Acute - Plan Plan: POD 4 -advance to GI soft -home in next few days -CLINICAL INFORMATICS MANAGER dc'd -still loose stools check cdiff toxin
[2019-07-10] MEDS: Enoxaparin Sodium 40 MG/0.4 ML SYRINGE SC SCH (20:27)
[2019-07-11] MEDS: traMADol HCl 50 MG TAB PO PRN (05:28)
[2019-07-11] MEDS: traMADol HCl 50 MG TAB PO SCH ×4 (05:28→21:11)
[2019-07-11] MEDS: Acetaminophen 500 MG TAB PO SCH ×3 (05:29→18:45)
[2019-07-11] MEDS: Promethazine HCl 25 MG/ML VIAL IM PRN (07:21)
--- NOTE | 2019-07-11 08:29 | PDOC.GSPN ---
Surgery Progress Note: Subj - Subjective Patient reports: no new complaints (kathy gi soft diet) Surgery Progress Note: Obj - Vital signs Vital signs: Vital Signs - Most Recent Temp Pulse Resp BP Pulse Ox 97.9 F 100 16 129/83 96 07/11/19 03:49 07/11/19 03:49 07/11/19 03:49 07/11/19 03:49 07/11/19 03:49 - Physical Exam General: no distress Cardiovascular: regular rate and rhythm Respiratory: clear to auscultation Abdomen: soft, appropriately tender Wound: healing well Surgery Progress Note: Results - Labs Result Diagrams: 07/10/19 05:08 07/08/19 05:05 Surgery Progress Note: A/P - Problem (1) Colon polyp Current Visit: Yes Code(s): K63.5 - POLYP OF COLON Status: Acute - Plan Plan: POD 4 -advance to GI soft -home in next few days -SMOKE EATER dc'd -cdiff negative -I already sent Rx's to [facility]
[2019-07-11] MEDS: Saccharomyces boulardii 250 MG CAP PO SCH ×2 (09:07→21:06)
[2019-07-11] MEDS: Thyroid 60 MG TAB PO SCH (09:07)
[2019-07-11] MEDS: Levothyroxine 150 MCG TAB PO SCH (09:07)
[2019-07-11] MEDS: PARoxetine 20 MG TAB PO SCH (09:07)
[2019-07-11] MEDS: Famotidine 20 MG TAB PO SCH ×2 (09:07→21:05)
[2019-07-11] MEDS: NIFEdipine XL 60 MG TAB PO SCH ×2 (09:07→21:05)
[2019-07-11] MEDS: Flecainide 50 MG TAB PO SCH ×2 (09:07→21:06)
[2019-07-11] MEDS: DULoxetine 30 MG CAP PO SCH (09:07)
[2019-07-11] MEDS: Famotidine/PF 20 mg/2ml Vial SLOW IVP SCH ×2 (09:08→21:05)
[2019-07-11] MEDS: Enoxaparin Sodium 40 MG/0.4 ML SYRINGE SC SCH (21:05)
[2019-07-11] MEDS: Melatonin 3 MG TAB PO PRN (21:11)
[2019-07-12] MEDS: Acetaminophen 500 MG TAB PO SCH ×5 (00:33→23:15)
[2019-07-12] MEDS: traMADol HCl 50 MG TAB PO SCH ×4 (03:10→21:57)
[2019-07-12] MEDS: Promethazine HCl 25 MG/ML VIAL IM PRN ×3 (04:28→22:30)
[2019-07-12] MEDS: NIFEdipine XL 60 MG TAB PO SCH ×2 (09:31→20:47)
[2019-07-12] MEDS: Saccharomyces boulardii 250 MG CAP PO SCH ×2 (09:31→20:44)
[2019-07-12] MEDS: PARoxetine 20 MG TAB PO SCH (09:31)
[2019-07-12] MEDS: DULoxetine 30 MG CAP PO SCH (09:31)
[2019-07-12] MEDS: Famotidine 20 MG TAB PO SCH ×2 (09:31→20:46)
[2019-07-12] MEDS: Levothyroxine 150 MCG TAB PO SCH (09:31)
[2019-07-12] MEDS: Thyroid 60 MG TAB PO SCH (09:32)
[2019-07-12] MEDS: Flecainide 50 MG TAB PO SCH ×2 (09:36→20:46)
[2019-07-12] MEDS: Famotidine/PF 20 mg/2ml Vial SLOW IVP SCH ×2 (09:37→20:49)
--- NOTE | 2019-07-12 09:46 | PRG ---
DATE OF SERVICE: 07/12/2019 SUBJECTIVE: The patient reports that she is feeling better. She is having a lot of diarrhea. She is tolerating regular diet. Pain is improving. She does not want to go home today. She wants to wait till tomorrow, because she lives far away. OBJECTIVE: VITAL SIGNS: Temperature is 98, pulse 92, blood pressure 125/81. GENERAL: She is awake, alert, does not appear to be in any distress. ABDOMEN: Soft, obese. The incisions are healing well. There is some mild ecchymosis. No evidence of infection. ASSESSMENT: Doing well. PLAN: Discharge tomorrow. Job ID: [id number]
[2019-07-12] MEDS: Enoxaparin Sodium 40 MG/0.4 ML SYRINGE SC SCH (20:42)
[2019-07-12] MEDS: Melatonin 3 MG TAB PO PRN (21:57)
[2019-07-13] MEDS: Promethazine HCl 25 MG/ML VIAL IM PRN (03:07)
[2019-07-13] MEDS: traMADol HCl 50 MG TAB PO SCH ×4 (04:59→22:57)
[2019-07-13] MEDS: Acetaminophen 500 MG TAB PO SCH ×4 (05:00→23:00)
--- NOTE | 2019-07-13 08:12 | PDOC.GSPN ---
Surgery Progress Note: Subj - Subjective Narrative: More nausea overnight and today Surgery Progress Note: Obj - Vital signs Vital signs: Vital Signs - Most Recent Temp Pulse Resp BP Pulse Ox 98.1 F 92 20 131/76 93 L 07/13/19 07:20 07/13/19 07:20 07/13/19 07:20 07/13/19 07:20 07/13/19 07:20 - Physical Exam General: no distress Cardiovascular: regular rate and rhythm Respiratory: clear to auscultation Abdomen: soft, appropriately tender Wound: healing well Surgery Progress Note: Results - Labs Result Diagrams: 07/10/19 05:08 07/08/19 05:05 Surgery Progress Note: A/P - Problem (1) Colon polyp Current Visit: Yes Code(s): K63.5 - POLYP OF COLON Status: Acute - Plan Plan: POD 7 right colectomy\ -persistent mild nausea -pain controlled -try oral nausea control
[2019-07-13] MEDS: Levothyroxine 150 MCG TAB PO SCH (08:41)
[2019-07-13] MEDS: Saccharomyces boulardii 250 MG CAP PO SCH ×2 (08:41→20:30)
[2019-07-13] MEDS: Flecainide 50 MG TAB PO SCH ×2 (08:41→20:48)
[2019-07-13] MEDS: NIFEdipine XL 60 MG TAB PO SCH ×2 (08:41→20:30)
[2019-07-13] MEDS: Thyroid 60 MG TAB PO SCH (08:41)
[2019-07-13] MEDS: DULoxetine 30 MG CAP PO SCH (08:42)
[2019-07-13] MEDS: PARoxetine 20 MG TAB PO SCH (08:42)
[2019-07-13] MEDS: Famotidine 20 MG TAB PO SCH ×2 (08:42→20:30)
[2019-07-13] MEDS: Ondansetron ODT 4 MG TAB PO PRN ×3 (08:42→23:18)
[2019-07-13] MEDS: Famotidine/PF 20 mg/2ml Vial SLOW IVP SCH ×2 (08:45→20:35)
[2019-07-13] MEDS: Enoxaparin Sodium 40 MG/0.4 ML SYRINGE SC SCH (20:29)
[2019-07-13] MEDS: Melatonin 3 MG TAB PO PRN (20:35)
[2019-07-14] MEDS: Promethazine 25 MG TAB PO PRN ×2 (04:04→16:01)
[2019-07-14] MEDS: traMADol HCl 50 MG TAB PO SCH ×3 (04:57→15:29)
[2019-07-14] MEDS: Acetaminophen 500 MG TAB PO SCH ×2 (05:00→12:10)
[2019-07-14] MEDS: Famotidine/PF 20 mg/2ml Vial SLOW IVP SCH (08:53)
[2019-07-14] MEDS: Saccharomyces boulardii 250 MG CAP PO SCH (08:55)
[2019-07-14] MEDS: DULoxetine 30 MG CAP PO SCH (08:55)
[2019-07-14] MEDS: PARoxetine 20 MG TAB PO SCH (08:55)
[2019-07-14] MEDS: NIFEdipine XL 60 MG TAB PO SCH (08:56)
[2019-07-14] MEDS: Thyroid 60 MG TAB PO SCH (08:56)
[2019-07-14] MEDS: Famotidine 20 MG TAB PO SCH (08:56)
[2019-07-14] MEDS: Levothyroxine 150 MCG TAB PO SCH (08:56)
[2019-07-14] MEDS: Flecainide 50 MG TAB PO SCH (10:03)
--- NOTE | 2019-07-14 12:00 | DIS ---
DATE OF ADMISSION: 07/06/2019 DATE OF DISCHARGE: 07/14/2019 ADMITTING DIAGNOSIS: Unresectable by colonoscopy colon polyp. DISCHARGE DIAGNOSIS: Unresectable by colonoscopy colon polyp. PROCEDURE: Laparoscopic converted to open right colectomy by Dr. Glasgow without complication. CONDITION ON DISCHARGE: Improved. STAFF: Anton Glasgow MD HOSPITAL COURSE: The patient's postop course was uneventful. Her ileus slowly resolved. She did have more loose stools than the usual patient's postop right colectomy. C diff test was negative for toxin. On the day of discharge, she is tolerating regular food. Her wounds are healing well. She is discharged home. She will follow up with me in the office in 10 days. Her pathology results show only benign polyp without high-grade dysplasia or malignancy. Prescriptions for [place], Zofran, and Phenergan sent to her pharmacy. Job ID: [id number]
[2019-07-14 13:16] VITALS: BP 168/98; TEMP 98.2
[2019-07-14] MEDS: Ondansetron ODT 4 MG TAB PO PRN (15:29)
== END 2019-07-14 16:28 | disposition home or self-care (01) | DRG 330 ==
LOC: SURG A 07-06 05:57
PROVIDERS: ADMIT Surgery; ATTEND Surgery
PROC: 0DTF0ZZ Resection of Right Large Intestine, Open Approach (ICD-10-PCS; principal; 2019-07-06)
PROC: 0DJD4ZZ Inspection of Lower Intestinal Tract, Percutaneous Endoscopic Approach (ICD-10-PCS; 2019-07-06)
DX: D12.3 Benign neoplasm of transverse colon (principal); K55.9 Vascular disorder of intestine, unspecified; K56.7 Ileus, unspecified; I10 Essential (primary) hypertension; E78.5 Hyperlipidemia, unspecified; I48.91 Unspecified atrial fibrillation; G47.30 Sleep apnea, unspecified; E03.9 Hypothyroidism, unspecified; M19.90 Unspecified osteoarthritis, unspecified site; J30.2 Other seasonal allergic rhinitis; E66.01 Morbid (severe) obesity due to excess calories; F32.9 Major depressive disorder, single episode, unspecified; F41.9 Anxiety disorder, unspecified; Z90.710 Acquired absence of both cervix and uterus; Z95.810 Presence of automatic (implantable) cardiac defibrillator; Z68.36 Body mass index [BMI] 36.0-36.9, adult; Z79.890 Hormone replacement therapy; Z88.2 Allergy status to sulfonamides; Z88.8 Allergy status to other drugs, medicaments and biological substances
CPT/HCPCS: 36415; 36416; 80048; 85007; 85025; 85027; 87045; 87046; 87324; 87427; 87449; 88307; J0131; J0670; J0694; J1100; J1170; J1200; J1650; J1885; J2001; J2250; J2405; J2550; J2704; J2765; J3010; J3490; Q0162; Q0169; S0028

== ENCOUNTER 2019-07-15 15:40 | Inpatient (IN) | payer OTHER ==
[2019-07-15 16:14] LABS: #Basophils 0.1 thou/uL (0.0-0.2); #Eosinphils 0.1 thou/uL (0.0-0.7); #Monocytes 1.8 thou/uL (0.11-0.59); #Neutrophils 11.7 thou/uL (1.40-6.50); %Basophils 0.5 % (0.0-1.0); %Eosinophils 0.5 % (0.0-10.0); %Lymphocytes 12.9 % (21.0-51.0); %Monocytes 11.6 % (0.0-10.0); %Neutrophils 74.4 % (42.0-75.0); Hemoglobin 11.8 g/dL (12.0-16.0); Mean Corpuscular Hemoglobin 32.8 pg (27.0-31.0); Mean Corpuscular Volume 96.3 fL (78.0-98.0); Mean Platelet Volume 6.7 fL (7.4-10.4); Platelet Count 478 thou/uL (130-400); RBC Distribution Width 12.2 % (11.5-14.5); Red Blood Cell (RBC) Count 3.59 mill/uL (4.20-5.40); White Blood Cell (WBC) Count 15.7 thou/uL (4.8-10.8)
--- NOTE | 2019-07-15 16:25 | RAD ---
THREE VIEWS OF THE LEFT SHOULDER: 07/15/19 COMPARISON: None. HISTORY: Possible shoulder injury. FINDINGS: There is prominent degenerative change involving the left glenohumeral joint with joint space narrowi ng, subchondral sclerosis and osteophyte formation involving the humeral head and glenoid. 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 There is degenerative change involving the left acromioclavicular joint. Line ar calcification adjacent to the humeral head suggest calcification of the synovium and/or small intr a-articular loose bodies. No acute fracture or dislocation. IMPRESSION: Prominent degenerative change. No acute fracture or dislocation seen. POS: [facility]
[2019-07-15 16:34] LABS: ALT (SGPT) 45 U/L (8-55); AST (SGOT) 28 U/L (5-34); Albumin 3.7 g/dL (3.4-4.8); Alkaline Phosphatase 98 U/L (40-110); Anion Gap 17 mmol/L (10-20); BUN (Urea Nitrogen) 10 mg/dL (9.8-20.1); Bilirubin, Total 0.3 mg/dL (0.2-1.2); Calc. Creatinine Clearance 0 mL/min (70-130); Carbon Dioxide 26 mmol/L (23-31); Chloride 100 mmol/L (98-107); Estimated GFR-MDRD 71; Globulin 3.5 g/dL (2.4-3.5); Glucose 105 mg/dL (80-115); Lipase 20 U/L (8-78); Potassium 3.2 mmol/L (3.5-5.1); Protein, Total 7.2 g/dL (6.0-8.3); Sodium 140 mmol/L (136-145)
[2019-07-15] MEDS ORDERED: HYDROcodone/Acetaminophen 7.5/325 mg Tablet ONE (16:46)
[2019-07-15] MEDS ORDERED: Fentanyl 100 MCG/2 ML VIAL ONE ×2 (17:16→18:30)
[2019-07-15] MEDS ORDERED: Ketorolac Tromethamine 30 MG/ML VIAL ONE (17:16)
[2019-07-15] MEDS ORDERED: HYDROcodone/Acetaminophen 7.5/325 mg Tablet PO PRN ×2 (18:21→22:38)
[2019-07-15] MEDS ORDERED: Acetaminophen 325 MG TAB PO PRN ×2 (18:23→22:48)
--- NOTE | 2019-07-15 18:37 | RAD ---
3 views left elbow: 07/15/2019 COMPARISON: None HISTORY: Pain, assess for fracture FINDINGS: No fracture or dislocation. No radiopaque foreign body or subcutaneous gas. IMPRESSION: No acute findings.
--- NOTE | 2019-07-15 18:38 | RAD ---
2 views left humerus: 07/15/2019 COMPARISON: None HISTORY: Pain, assess for fracture FINDINGS: No fracture or dislocation. No radiopaque foreign body or subcutaneous gas. There are promi nent degenerative changes in the region of the left shoulder. If there is concern for a radio occult fracture, CT of the area of concern suggested. IMPRESSION: No acute findings.
[2019-07-15] MEDS ORDERED: Ondansetron PF 4 MG/2 ML Vial IVP PRN (19:56)
[2019-07-15] MEDS ORDERED: Fentanyl 100 MCG/2 ML VIAL SLOW IVP PRN (19:56)
[2019-07-15] MEDS ORDERED: Diphenoxylate HCl/Atropine Tablet PO PRN (19:56)
[2019-07-15] MEDS ORDERED: hydrALAZINE 20 MG/ML VIAL SLOW IVP PRN (19:56)
[2019-07-15] MEDS ORDERED: Promethazine HCl 25 MG/ML VIAL IM PRN (19:56)
[2019-07-15] MEDS: Fentanyl 100 MCG/2 ML VIAL SLOW IVP PRN ×2 (20:38→22:52)
[2019-07-15] MEDS: D5 1/2 NS w/20 mEq KCL 1,000 ML IV SCH (20:48)
[2019-07-15] MEDS: Famotidine 20 MG TAB PO SCH (20:50)
[2019-07-15] MEDS: Enoxaparin Sodium 40 MG/0.4 ML SYRINGE SC SCH (20:50)
[2019-07-15] MEDS: NIFEdipine XL 60 MG TAB PO SCH (20:51)
[2019-07-15] MEDS: Melatonin 3 MG TAB PO SCH (20:51)
[2019-07-15] MEDS: Famotidine/PF 20 mg/2ml Vial SLOW IVP SCH (20:57)
[2019-07-15] MEDS ORDERED: Flecainide 50 MG TAB PO SCH (21:00)
--- NOTE | 2019-07-15 22:49 | HP ---
CHIEF COMPLAINT: Severe left arm and shoulder pain. HISTORY OF PRESENT ILLNESS: This is a 63-year-old female with a history of recent right colectomy performed open by me on 07/06/2019 for large unresectable by colonoscopy benign polyp. Her postop course was uneventful and she went home yesterday. She was trying to get herself up and out of bed and felt a tear in her left arm and then she developed severe pain. This pain has been unrelenting and it has kept her from being able to do her activities of daily living. She is also not able to get comfortable in bed, not able to get up and out of bed either. X-rays reveal no obvious fracture in the emergency room. She is being admitted for failure to thrive. PAST MEDICAL HISTORY: Includes atrial fibrillation, anxiety, colon polyp, GERD, hiatal hernia, hyperlipidemia, hypertension, hypothyroidism. PAST SURGICAL HISTORY: Includes cardiac cath and stent, defibrillator placement, cholecystectomy, right colectomy. MEDICATIONS: At home include; 1. [place] Thyroid. 2. Aspirin. 3. Calcium. 4. Diazepam. 5. Duloxetine. 6. Flecainide. 7. Levothyroxine. 8. Statin. 9. Melatonin. 10. Naproxen. 11. Nifedipine. 12. Paroxetine. 13. Quetiapine. ALLERGIES: NO KNOWN DRUG ALLERGIES. SOCIAL HISTORY: Nonsmoker. No alcohol. She is . Her is at the bedside as are her daughter and granddaughter. REVIEW OF SYSTEMS: Ten-system review of systems is otherwise negative unless described above. PHYSICAL EXAMINATION: HEENT: Sclerae are anicteric. Oropharynx clear. NECK: No lymphadenopathy. CHEST: Clear. HEART: Regular rate. ABDOMEN: Soft, nontender, nondistended. The midline incision is healing well. EXTREMITIES: No ischemia or edema to extremities. Left upper extremity exam limited secondary to pain. She has severe pain in the lateral arm and lateral shoulder area without obvious deformity. DIAGNOSTIC STUDIES: Left shoulder films reveal post prominent degenerative change without obvious fracture. ASSESSMENT: 1. Severe left arm pain, which is causing failure to thrive at home. 2. Recent right colectomy complicated by persistent postop diarrhea. 3. Hypertension. 4. Coronary artery disease. PLAN: Admit to hospital. Resume a regular diet as tolerated. We will add Imodium p.r.n. severe diarrhea. We will have orthopedics, specifically Dr. Contreras see her in the next 24 to 48 hours. We will discuss potential shoulder block with anesthesia if the pain persists overnight. I suspect she is going to need longterm or rehab placement. Job ID: [id number]
[2019-07-15] MEDS: HYDROcodone/Acetaminophen 7.5/325 mg Tablet PO PRN (22:53)
[2019-07-15] MEDS: Acetaminophen 325 MG TAB PO PRN (22:53)
[2019-07-15 23:46] VITALS: BMI 36.7
[2019-07-16] MEDS: HYDROcodone/Acetaminophen 7.5/325 mg Tablet PO PRN ×3 (04:14→19:14)
[2019-07-16] MEDS: Fentanyl 100 MCG/2 ML VIAL SLOW IVP PRN (04:15)
[2019-07-16] MEDS: Ketorolac Tromethamine 30 MG/ML VIAL IVP PRN ×3 (05:44→22:38)
[2019-07-16] MEDS: D5 1/2 NS w/20 mEq KCL 1,000 ML IV SCH (05:45)
[2019-07-16] MEDS: Levothyroxine 150 MCG TAB PO SCH (05:46)
[2019-07-16 06:12] LABS: #Eosinphils 0.1 thou/uL (0.0-0.7); #Lymphocytes 2.3 thou/uL (1.20-3.40); #Monocytes 1.7 thou/uL (0.11-0.59); #Neutrophils 8.8 thou/uL (1.40-6.50); %Basophils 0.3 % (0.0-1.0); %Eosinophils 0.8 % (0.0-10.0); %Lymphocytes 17.8 % (21.0-51.0); %Neutrophils 68.1 % (42.0-75.0); Hemoglobin 10.1 g/dL (12.0-16.0); Mean Corpuscular HGB CONC 34.3 g/dL (32.0-36.0); Mean Corpuscular Hemoglobin 33.3 pg (27.0-31.0); Mean Platelet Volume 6.6 fL (7.4-10.4); Platelet Count 344 thou/uL (130-400); RBC Distribution Width 12.2 % (11.5-14.5); Red Blood Cell (RBC) Count 3.02 mill/uL (4.20-5.40); White Blood Cell (WBC) Count 12.9 thou/uL (4.8-10.8)
[2019-07-16 06:22] LABS: Anion Gap 14 mmol/L (10-20); BUN (Urea Nitrogen) 9 mg/dL (9.8-20.1); Calc. Creatinine Clearance 134 mL/min (70-130); Calcium 8.3 mg/dL (7.8-10.44); Carbon Dioxide 30 mmol/L (23-31); Chloride 101 mmol/L (98-107); Estimated GFR-MDRD 74; Glucose 143 mg/dL (80-115); Sodium 142 mmol/L (136-145)
[2019-07-16] MEDS ORDERED: Potassium Chloride 40 MEQ in Sodium Chloride 0.9% 250 ML 250 ML IVPB SCH (07:30)
[2019-07-16] MEDS: PARoxetine 20 MG TAB PO SCH (08:33)
[2019-07-16] MEDS: Thyroid 60 MG TAB PO SCH (08:33)
[2019-07-16] MEDS: Famotidine 20 MG TAB PO SCH ×2 (08:33→20:29)
[2019-07-16] MEDS: DULoxetine 30 MG CAP PO SCH (08:33)
[2019-07-16] MEDS: Flecainide 50 MG TAB PO SCH ×2 (08:34→20:30)
[2019-07-16] MEDS: Famotidine/PF 20 mg/2ml Vial SLOW IVP SCH ×2 (08:50→20:31)
[2019-07-16] MEDS: NIFEdipine XL 60 MG TAB PO SCH ×2 (08:50→20:31)
[2019-07-16] MEDS ORDERED: Non-Formulary Item 1 EACH (Omeprazole [Omeprazole] 40 MG) PO SCH (09:00)
--- NOTE | 2019-07-16 10:58 | PRG ---
DATE OF SERVICE: 07/16/2019 SUBJECTIVE: Ms. Thakkar is resting comfortably this morning. She did eat a [employer] for dinner last night. They did an Imodium at home yesterday before coming to the hospital. She has not had any diarrhea since. She did have fentanyl yesterday evening, has not had any this morning. Her abdomen is soft and nontender. Wounds are healing well. Her white count is 12. UA is pending. ASSESSMENT: Failure to thrive at home with severe left arm pain. No fracture. PLAN: Start having Therapy work with her today and discontinue the fentanyl so she is not so sleepy. Job ID: [id number]
[2019-07-16] MEDS: Diphenoxylate HCl/Atropine Tablet PO PRN ×2 (14:20→20:31)
[2019-07-16] MEDS: Acetaminophen 325 MG TAB PO PRN ×2 (15:01→22:38)
[2019-07-16] MEDS ORDERED: Non-Formulary Item 1 EACH (Lovastatin [Lovastatin] 10 MG) PO SCH (17:00)
[2019-07-16] MEDS: Simvastatin 5 MG TAB PO SCH (17:41)
[2019-07-16] MEDS: Enoxaparin Sodium 40 MG/0.4 ML SYRINGE SC SCH (20:28)
[2019-07-16] MEDS: Melatonin 3 MG TAB PO SCH (20:29)
[2019-07-17] MEDS: HYDROcodone/Acetaminophen 7.5/325 mg Tablet PO PRN ×4 (01:02→18:12)
[2019-07-17] MEDS: Levothyroxine 150 MCG TAB PO SCH (06:00)
[2019-07-17 06:01] LABS: #Basophils 0.1 thou/uL (0.0-0.2); #Eosinphils 0.3 thou/uL (0.0-0.7); #Lymphocytes 2.4 thou/uL (1.20-3.40); #Monocytes 1.7 thou/uL (0.11-0.59); #Neutrophils 6.7 thou/uL (1.40-6.50); %Basophils 0.6 % (0.0-1.0); %Eosinophils 2.8 % (0.0-10.0); %Lymphocytes 21.6 % (21.0-51.0); %Monocytes 14.9 % (0.0-10.0); %Neutrophils 60.1 % (42.0-75.0); Hemoglobin 9.3 g/dL (12.0-16.0); Mean Corpuscular HGB CONC 33.9 g/dL (32.0-36.0); Mean Corpuscular Hemoglobin 33.2 pg (27.0-31.0); Mean Corpuscular Volume 98.2 fL (78.0-98.0); Mean Platelet Volume 7.4 fL (7.4-10.4); Platelet Count 343 thou/uL (130-400); RBC Distribution Width 12.3 % (11.5-14.5); White Blood Cell (WBC) Count 11.1 thou/uL (4.8-10.8)
[2019-07-17] MEDS: D5 1/2 NS w/20 mEq KCL 1,000 ML IV SCH (06:02)
[2019-07-17 06:21] LABS: Anion Gap 9 mmol/L (10-20); BUN (Urea Nitrogen) 12 mg/dL (9.8-20.1); Calc. Creatinine Clearance 151 mL/min (70-130); Calcium 8.1 mg/dL (7.8-10.44); Carbon Dioxide 32 mmol/L (23-31); Chloride 104 mmol/L (98-107); Estimated GFR-MDRD 85; Glucose 92 mg/dL (80-115); Potassium 3.1 mmol/L (3.5-5.1); Sodium 142 mmol/L (136-145)
[2019-07-17 07:15] LABS: Bacteria/HPF 2+ HPF (None Seen); Bilirubin Negative (Negative); Blood, Urine Negative (Negative); Clarity Clear (Clear); Glucose, Urine (Dipstick) Normal (Negative); Leukocyte 75 Leu/uL (Negative); Nitrite Negative (Negative); Protein, Urine (Dipstick) Negative (Neg-Trace); Urobilinogen Normal mg/dL (Less than 2)
[2019-07-17 07:17] LABS: Urine Culture Reflex No No
[2019-07-17] MEDS: Famotidine/PF 20 mg/2ml Vial SLOW IVP SCH ×2 (08:01→20:32)
[2019-07-17] MEDS: NIFEdipine XL 60 MG TAB PO SCH ×2 (08:12→23:09)
[2019-07-17] MEDS: Flecainide 50 MG TAB PO SCH ×2 (08:12→20:32)
[2019-07-17] MEDS ORDERED: Potassium Chloride 40 MEQ in Sodium Chloride 0.9% 250 ML 250 ML IVPB SCH (08:15)
--- NOTE | 2019-07-17 08:15 | PRG ---
DATE OF SERVICE: 07/17/2019 SUBJECTIVE: Ms. Thakkar has no complaints today other than left arm pain, it is actually improved; however, she has limited movement. She is also complaining of mild swelling at the wrist. She has no abdominal pain. She tolerated regular food for dinner. She has loose stools after most meals. OBJECTIVE: VITAL SIGNS: Blood pressure is 122/80, pulse is 91, respirations 18. She is afebrile. GI: Multiple voids. One bowel movement yesterday. Her abdomen is soft, nontender. Wound is healing well. There is no evidence of infection. LABORATORY DATA: White blood cell count is 11, hemoglobin 9.3, normal differential. Creatinine 0.7, potassium is 3.1. ASSESSMENT: 1. Postop right colectomy, readmitted for failure to thrive at home and severe left arm pain. 2. Potassium is low. We will give IV potassium. 3. Loose stools after right colectomy, which is normal She has C. diff negative, allow for Lomotil once a day. 4. Deconditioning. PLAN: To rehab today. We will check ultrasound to rule out DVT in the left upper extremity. Dr. Contreras has agreed to see her for left arm, any new recommendations. Hopefully, over to rehab later today. Job ID: [id number]
[2019-07-17] MEDS: Famotidine 20 MG TAB PO SCH ×2 (08:16→20:32)
[2019-07-17] MEDS: DULoxetine 30 MG CAP PO SCH (08:17)
[2019-07-17] MEDS: PARoxetine 20 MG TAB PO SCH (08:17)
[2019-07-17] MEDS: Thyroid 60 MG TAB PO SCH (08:17)
[2019-07-17] MEDS ORDERED: Triamcinolone 40 MG/ML VIAL I-ARTICULR SCH (10:15)
[2019-07-17] MEDS ORDERED: Lidocaine 1% (PF) 30 ML VIAL SC SCH (10:15)
--- NOTE | 2019-07-17 10:32 | CON ---
DATE OF CONSULTATION: 07/17/2019 REQUESTING PHYSICIAN: Anton Glasgow MD CONSULTING PHYSICIAN: Jin Contreras MD REASON FOR CONSULTATION: Left shoulder pain, acute in nature. BRIEF CLINICAL HISTORY: Rin is a 63-year-old female, who was admitted by Dr. Glasgow, after an open right colectomy was performed on July 06, 2019. Her postop course was uneventful. She went home, I believe 3 to 5 days after hospital stay. She was unable to get up out of bed and felt the abrupt pain in her left shoulder when she was trying to reach over and stand. The pain is localized in the left shoulder and brachium is quite severe and it has prompted her to re-presented to the emergency room, resulting in readmission. She has had discomfort in the shoulder dating back a couple of years and she in fact saw Dr. Contreras for the same type of problem. He diagnosed her with glenohumeral arthritis and inject her with cortisone, which completely resolved her pain at that time. She has had episodes of discomfort since then, but this discomfort is quite severe and debilitating. She is unable to use the left arm, which is bailey to her being able to recover from her recent laparotomy. PAST MEDICAL HISTORY: Significant for atrial fibrillation, anxiety, gastroesophageal reflux disease, hiatal hernia, hyperlipidemia, and hypertension. PAST SURGICAL HISTORY: She has had a defibrillator/pacemaker placed, cardiac catheterization, cholecystectomy, and right colectomy. MEDICATIONS: 1. Thyroid. 2. Aspirin. 3. Calcium. 4. Diazepam. 5. Duloxetine. 6. Flecainide. 7. Levothyroxine. 8. She is on a statin for lipids. 9. Melatonin. 10. Naproxen. 11. Nifedipine. 12. Paroxetine. 13. Quetiapine. ALLERGIES: NO KNOWN DRUG ALLERGIES. SHE DENIES ANY CONTACT ALLERGIES. SOCIAL HISTORY: She is . She denies any ethanol, tobacco, or illicit drug abuse. accompanies the patient at bedside. PHYSICAL EXAMINATION: Visual inspection of left shoulder demonstrates normal external landmarks. She has exquisite discomfort with tenderness to palpation in both the anterior and posterior joint line as well as laterally. She has no breaks in the skin. I see no rashes either. Further examination of the brachium demonstrates her to have diffuse tenderness circumferentially. Elbow examination is benign. Normal wrist and hand also normal. She cannot adduct and abduct actively as it is quite intolerable and passive range of motion also is quite intolerable to the patient. She is neurovascularly intact and she has good radial pulse and capillary refill is brisk. IMAGING STUDIES: Three views of left shoulder demonstrates the patient have advanced degenerative changes for her age. She has large periarticular osteophyte at the humeral neck, both anterior and posterior. No fracture. No acute changes and she also has a degree of calcific tendinitis best appreciated on AP view. Otherwise, there is no subluxation, dislocation, or lytic changes, but she also has periarticular cystic changes in the humeral head. IMPRESSION: 1. Advanced glenohumeral osteoarthritis, left shoulder. 2. Calcific tendinitis, left shoulder. 3. Suspect an acute articular tear with a compounding effusion. PLAN: 1. I will discuss with Radiology the possibility of obtaining an MR, but we have to first find out what kind and model of her pacemaker. 2. If this is not possible, I will go ahead and proceed with a left shoulder arthrocentesis followed by corticosteroid injection at the bedside. We will see her back in clinic after hospital discharge and rehab stay. Job ID: [id number]
[2019-07-17] MEDS ORDERED: ALPRAZolam 0.5 MG TAB PO SCH (12:30)
[2019-07-17] MEDS ORDERED: Amoxicillin/Potassium Clav 875 MG TAB PO SCH ×2 (13:15→21:00)
--- NOTE | 2019-07-17 13:18 | ULT ---
LEFT UPPER EXTREMITY VENOUS DOPPLER ULTRASOUND: DATE: 07/17/2019. COMPARISON: None. HISTORY: Pain and edema, assess for DVT. TECHNIQUE: Multiplanar, arguello scale, sonographic imaging of the venous structures of the left upper extremity wer e obtained with color flow and spectral analysis. FINDINGS: Left internal jugular vein, subclavian vein, and axillary vein are patent. Left basilic vein, cephalic vein, radial vein, ulnar vein, and brachial vein are patent. No evidence for DVT involving the left upper extremity. IMPRESSION: No evidence for deep venous thrombosis of the left upper extremity. POS: [facility]
[2019-07-17] MEDS ORDERED: Saccharomyces boulardii 250 MG CAP PO SCH (14:30)
--- NOTE | 2019-07-17 15:33 | OP ---
DATE OF PROCEDURE: 07/17/2019 PREPROCEDURE DIAGNOSIS: Left shoulder glenohumeral osteoarthritis with possible rotator cuff tear. POSTPROCEDURE DIAGNOSIS: Left shoulder glenohumeral osteoarthritis with possible rotator cuff tear. OPERATIVE PROCEDURE: Diagnostic/therapeutic arthrocentesis with corticosteroid and local anesthetic injection, left shoulder. SECURITY SOFTWARE ENGINEER: Fernando Garzon PA-C ANESTHESIA: Skin wheal 1% xylocaine without epinephrine. FINDINGS: Radiographs demonstrating [id number] glenohumeral osteoarthritis with periarticular osteophytes noted on the humeral head with subchondral cysts appreciated. SPECIMENS: None. COMPLICATIONS: None. COUNTS: Correct. INDICATION FOR PROCEDURE: Rin is a 63-year-old white female, who was admitted by Dr. Glasgow for intense acute onset left shoulder pain. She has had episodes like this before, but never quite so severe. She is unable to lift the arm and use it due to the discomfort. Our service was consulted for evaluation. She cannot have an MRI due to a non-MR compatible pacemaker/defibrillator which is implanted. Therefore, the risks, benefits, options, alternatives, rationale for proceeding with a left shoulder local anesthetic arthrocentesis with a corticosteroid injection has been explained in great detail and the patient is ready to proceed. DESCRIPTION OF PROCEDURE: After informed consent was obtained, the patient was positioned appropriately and she was sitting upright position. She was dosed with [place] 10 with 0.05 mg of Xanax for anxiolytic. The left shoulder was then prepped and draped in usual sterile fashion. After a short time-out was called, I used 1% xylocaine in 5 mL syringe to establish a skin wheal anesthetic down to the subacromial noted by palpation. Long finger of the same hand was placed over the coracoid and I was able to slide the needle in the subacromial space without any difficulty. Anesthetic track was then injected. I then used a 22-gauge 3.5 inch spinal needle to access the subacromial/intra-articular space because of the patient's habitus. I was able to enter the space, aspirate, failed to yield any large few accumulation or effusion. Therefore, I injected 10 mL of 1% xylocaine with 80 mg of triamcinolone without any significant back pressure confirming placement of the needle inside the intra-articular space. The patient tolerated the procedure well. Needle was withdrawn. Sterile dressing was applied and procedure terminated without any complication. She was able to move her shoulder much more easily immediately following injection. She will follow up with Dr. Glasgow and she may be discharged or transferred to inpatient rehabilitation. I think she has planned at this point. Job ID: [id number]
[2019-07-17] MEDS: Simvastatin 5 MG TAB PO SCH (16:29)
[2019-07-17] MEDS: Enoxaparin Sodium 40 MG/0.4 ML SYRINGE SC SCH (20:31)
[2019-07-17] MEDS: Melatonin 3 MG TAB PO SCH (20:33)
[2019-07-18] MEDS: HYDROcodone/Acetaminophen 7.5/325 mg Tablet PO PRN (00:11)
[2019-07-18] MEDS: Levothyroxine 150 MCG TAB PO SCH (05:32)
[2019-07-18] MEDS: Famotidine/PF 20 mg/2ml Vial SLOW IVP SCH ×2 (08:02→21:58)
[2019-07-18] MEDS: Thyroid 60 MG TAB PO SCH (08:09)
[2019-07-18] MEDS: Famotidine 20 MG TAB PO SCH ×2 (08:10→21:55)
[2019-07-18] MEDS: Saccharomyces boulardii 250 MG CAP PO SCH (08:10)
[2019-07-18] MEDS: Flecainide 50 MG TAB PO SCH ×2 (08:10→21:56)
[2019-07-18] MEDS: Loratadine 10 MG TAB PO SCH (08:10)
[2019-07-18] MEDS: PARoxetine 20 MG TAB PO SCH (08:10)
[2019-07-18] MEDS: DULoxetine 30 MG CAP PO SCH (08:11)
[2019-07-18] MEDS: NIFEdipine XL 60 MG TAB PO SCH (08:11)
--- NOTE | 2019-07-18 08:16 | PRG ---
DATE OF SERVICE: 07/18/2019 SUBJECTIVE: Rin is a 63-year-old female, who was a bounce-back admit for Dr. Glasgow. We took on consult yesterday for intense acute onset left shoulder pain. She is unable to have an MRI because of her implantable pacemaker. Therefore, I performed an arthrocentesis of the left shoulder with a therapeutic/diagnostic corticosteroid injection yesterday under local anesthetic. I was unable to examine her shoulder, it was so uncomfortable, but today she has had a significant improvement and reduction in pain so much so that she is laying on her right side, sleeping this morning. She has known osteoarthritis with periarticular osteophytes noted on radiograph with cystic changes in the subchondral bone of the humeral head. She responded well to intra-articular corticosteroid injections by Dr. Contreras in the past. PHYSICAL EXAMINATION: The patient can now move her shoulder. It is significantly limited range of motion with a restricted capsular pattern, but she can external rotate with weakness and her belly press test strongly positive for weakness with internal rotation. Otherwise, neurovascular intact. Easier to examine today and she can tolerate active and/or passive movement, but again she has restrictive capsular pattern. IMPRESSION: 1. Long-standing but early-onset left shoulder glenohumeral osteoarthritis noted on radiograph. 2. Calcific tendinitis appreciated on plain radiograph. 3. I suspect acute rupture of either the subscap or supraspinatus tendon superimposed on the aforementioned diagnoses. PLAN: 1. The patient responded well to intra-articular corticosteroids. 2. Activity as tolerated. 3. She will be transferred to rehab and follow up with Dr. Contreras in 3 to 4 weeks in clinic. At that time, we can discuss a CT arthrogram of the left shoulder as further diagnostics for planned interventions. Job ID: [id number]
[2019-07-18] MEDS ORDERED: Amoxicillin/Potassium Clav 875 MG TAB PO SCH (09:00)
[2019-07-18] MEDS: Fluticasone Propionate Nasal Spray 16 gm Bottle NASAL SCH (13:06)
[2019-07-18] MEDS ORDERED: traMADol HCl 50 MG TAB PO PRN (17:14)
[2019-07-18] MEDS ORDERED: Potassium Chloride 20 MEQ TAB PO SCH (17:15)
--- NOTE | 2019-07-18 17:25 | PRG ---
DATE OF SERVICE: 07/18/2019 SUBJECTIVE: Ms. Thakkar is doing well today. She is ambulating independently. She is feeling much better. She is tolerating her diet. OBJECTIVE: VITAL SIGNS: Temperature 98.2 degrees, heart rate 102, and blood pressure 109/55. LUNGS: Clear to auscultation. CARDIAC: Regular rate and rhythm without murmur or gallop. ABDOMEN: Soft, nontender. Surgical wound looks good. She has had a bowel movement. She has passed gas. LABORATORY DATA: . Sodium 142, potassium 3.1, BUN 12, and creatinine 0.7. ASSESSMENT: Doing well. PLAN: Probably discharge home tomorrow. Job ID: [id number]
[2019-07-18] MEDS: Simvastatin 5 MG TAB PO SCH (19:08)
[2019-07-18] MEDS: Piperacillin/Tazobactam 3.375 GM in Sodium Chloride 0.9% 100 ML IVPB SCH (19:09)
[2019-07-18] MEDS: Melatonin 3 MG TAB PO SCH (21:55)
[2019-07-18] MEDS: Diphenoxylate HCl/Atropine Tablet PO PRN (21:56)
[2019-07-18] MEDS: Enoxaparin Sodium 40 MG/0.4 ML SYRINGE SC SCH (21:58)
[2019-07-19] MEDS: Piperacillin/Tazobactam 3.375 GM in Sodium Chloride 0.9% 100 ML IVPB SCH (00:35)
[2019-07-19] MEDS: NIFEdipine XL 60 MG TAB PO SCH ×3 (00:45→10:19)
[2019-07-19] MEDS ORDERED: Ibuprofen 600 MG TAB PO PRN (04:00)
[2019-07-19] MEDS: Levothyroxine 150 MCG TAB PO SCH (05:34)
[2019-07-19 06:08] LABS: Anion Gap 12 mmol/L (10-20); BUN (Urea Nitrogen) 10 mg/dL (9.8-20.1); Calc. Creatinine Clearance 143 mL/min (70-130); Calcium 8.8 mg/dL (7.8-10.44); Carbon Dioxide 28 mmol/L (23-31); Chloride 106 mmol/L (98-107); Estimated GFR-MDRD 79; Glucose 101 mg/dL (80-115); Potassium 3.4 mmol/L (3.5-5.1); Sodium 143 mmol/L (136-145)
[2019-07-19] MEDS: Famotidine/PF 20 mg/2ml Vial SLOW IVP SCH ×2 (10:12→21:13)
[2019-07-19] MEDS: Famotidine 20 MG TAB PO SCH ×2 (10:19→21:12)
[2019-07-19] MEDS: DULoxetine 30 MG CAP PO SCH (10:20)
[2019-07-19] MEDS: Thyroid 60 MG TAB PO SCH (10:20)
[2019-07-19] MEDS: Saccharomyces boulardii 250 MG CAP PO SCH (10:20)
[2019-07-19] MEDS: PARoxetine 20 MG TAB PO SCH (10:21)
[2019-07-19] MEDS: Loratadine 10 MG TAB PO SCH (10:22)
[2019-07-19] MEDS: Flecainide 50 MG TAB PO SCH ×2 (10:22→21:13)
[2019-07-19] MEDS ORDERED: Potassium Chloride 20 MEQ TAB PO SCH ×2 (10:30→14:45)
[2019-07-19] MEDS: Fluticasone Propionate Nasal Spray 16 gm Bottle NASAL SCH (10:58)
[2019-07-19] MEDS: Diphenoxylate HCl/Atropine Tablet PO PRN (12:52)
--- NOTE | 2019-07-19 14:46 | PRG ---
DATE OF SERVICE: 07/19/2019 SUBJECTIVE: Ms. Thakkar is doing well today. Mobility is good, but she is having recurrent diarrhea. This is C diff has been ordered, but pending. She is taking Lomotil as needed, she had a dose last night. Otherwise, she is doing well, tolerating her diet. OBJECTIVE: VITAL SIGNS: Temperature 98.1, pulse 85, blood pressure 130/78. LUNGS: Clear to auscultation. CARDIAC: Regular rate and rhythm without murmur or gallop. ABDOMEN: Soft, nontender. LABORATORY DATA: Potassium 3.4, single dose of potassium chloride ordered. We will check again tomorrow. ASSESSMENT AND PLAN: Diarrhea. Hopefully, she can be discharged home tomorrow if her diarrhea resolves. Await her repeat C diff studies. We will stop her Zosyn. She reported urinary tract infection, although there are no records of UTI in this hospitalization. Urinalysis obtained on admission revealed 4 to 6 white cells, urine bacteria 2+, nitrite negative. Cultures not obtained. She had been on Augmentin for several days and Zosyn for 24 hours. We will discontinue antibiotics at this time. Job ID: [id number]
[2019-07-19] MEDS: Simvastatin 5 MG TAB PO SCH (16:17)
[2019-07-19] MEDS: Acetaminophen 500 MG TAB PO PRN (16:17)
[2019-07-19] MEDS ORDERED: Diphenoxylate HCl/Atropine Tablet PO PRN (16:22)
[2019-07-19] MEDS: Citrucel 500 MG TAB PO SCH (21:13)
[2019-07-19] MEDS: Enoxaparin Sodium 40 MG/0.4 ML SYRINGE SC SCH (21:13)
[2019-07-19] MEDS: Melatonin 3 MG TAB PO SCH (21:13)
[2019-07-19] MEDS ORDERED: NIFEdipine XL 60 MG TAB PO SCH (21:30)
[2019-07-20] MEDS: Acetaminophen 500 MG TAB PO PRN (05:10)
[2019-07-20] MEDS: Levothyroxine 150 MCG TAB PO SCH (05:10)
[2019-07-20] MEDS: Saccharomyces boulardii 250 MG CAP PO SCH (08:35)
[2019-07-20] MEDS: Thyroid 60 MG TAB PO SCH (08:35)
[2019-07-20] MEDS: NIFEdipine XL 60 MG TAB PO SCH (08:35)
[2019-07-20] MEDS: PARoxetine 20 MG TAB PO SCH (08:36)
[2019-07-20] MEDS: Loratadine 10 MG TAB PO SCH (08:36)
[2019-07-20] MEDS: DULoxetine 30 MG CAP PO SCH (08:36)
[2019-07-20] MEDS: Famotidine 20 MG TAB PO SCH (08:36)
[2019-07-20] MEDS: Fluticasone Propionate Nasal Spray 16 gm Bottle NASAL SCH (08:37)
[2019-07-20] MEDS: Citrucel 500 MG TAB PO SCH (08:37)
[2019-07-20] MEDS: Flecainide 50 MG TAB PO SCH (08:38)
[2019-07-20] MEDS: Famotidine/PF 20 mg/2ml Vial SLOW IVP SCH (08:39)
[2019-07-20 12:51] VITALS: BP 137/84; TEMP 98.7
--- NOTE | 2019-07-20 15:48 | PRG ---
DATE OF SERVICE: 07/20/2019 SUBJECTIVE: Rin Thakkar is doing well today. She is having less diarrhea. C diff studies were negative. She has been taking Citrucel twice a day and Lomotil as needed. C diff studies were negative. OBJECTIVE: LUNGS: Clear to auscultation. CARDIAC: Regular rate and rhythm without murmur or gallop. ABDOMEN: Soft and nontender. The patient is feeling better. Mobility is much better. She is independent. PLAN: Plan is to discharge home today. Follow up with Dr. Glasgow in 2 to 3 weeks. Job ID: [id number]
[2019-07-20] MEDS: Simvastatin 5 MG TAB PO SCH (16:12)
== END 2019-07-20 18:45 | disposition home or self-care (01) | DRG 554 ==
LOC: ERS 15:40 → OBSVTOIN 19:40 → SURG B 19:40
PROVIDERS: ADMIT Surgery; ATTEND Surgery
PROC: 3E0U33Z Introduction of Anti-inflammatory into Joints, Percutaneous Approach (ICD-10-PCS; principal; 2019-07-17)
PROC: 3E0U3BZ Introduction of Anesthetic Agent into Joints, Percutaneous Approach (ICD-10-PCS; 2019-07-17)
PROC: 0RJK3ZZ Inspection of Left Shoulder Joint, Percutaneous Approach (ICD-10-PCS; 2019-07-17)
DX: M19.012 Primary osteoarthritis, left shoulder (principal); I48.91 Unspecified atrial fibrillation; F41.9 Anxiety disorder, unspecified; K21.9 Gastro-esophageal reflux disease without esophagitis; E78.5 Hyperlipidemia, unspecified; I10 Essential (primary) hypertension; E03.9 Hypothyroidism, unspecified; I25.10 Atherosclerotic heart disease of native coronary artery without angina pectoris; R62.7 Adult failure to thrive; R19.7 Diarrhea, unspecified; R53.81 Other malaise; M75.32 Calcific tendinitis of left shoulder; Z90.49 Acquired absence of other specified parts of digestive tract; Z95.810 Presence of automatic (implantable) cardiac defibrillator; Z79.82 Long term (current) use of aspirin; Z68.36 Body mass index [BMI] 36.0-36.9, adult
CPT/HCPCS: 36415; 80048; 80053; 81001; 83605; 83690; 85025; 87324; 87449; 96374; 96375; 96376; J1650; J1885; J2001; J2405; J2543; J2550; J3010; J3301; J3480; J3490; J7050; S0028

== ENCOUNTER 2021-06-11 16:35 | Inpatient (IN) | payer MEDICARE ==
[2021-06-11 17:14] LABS: #Basophils 0.1 thou/uL (0.0-0.2); #Eosinphils 0.3 thou/uL (0.0-0.7); #Lymphocytes 2.3 thou/uL (1.20-3.40); #Monocytes 0.6 thou/uL (0.11-0.59); #Neutrophils 4.4 thou/uL (1.40-6.50); %Basophils 1.6 % (0.0-1.0); %Monocytes 7.5 % (0.0-10.0); %Neutrophils 56.8 % (42.0-75.0); Hemoglobin 13.4 g/dL (12.0-16.0); Mean Corpuscular HGB CONC 34.8 g/dL (32.0-36.0); Platelet Count 451 thou/uL (130-400); RBC Distribution Width 11.6 % (11.5-14.5); Red Blood Cell (RBC) Count 3.83 mill/uL (4.20-5.40); White Blood Cell (WBC) Count 7.8 thou/uL (4.8-10.8)
[2021-06-11 17:34] LABS: ALT (SGPT) 27 U/L (8-55); AST (SGOT) 29 U/L (5-34); Albumin 3.7 g/dL (3.4-4.8); Alkaline Phosphatase 70 U/L (40-110); Anion Gap 14 mmol/L (10-20); BUN (Urea Nitrogen) 13 mg/dL (9.8-20.1); Bilirubin, Total 0.3 mg/dL (0.2-1.2); Calc. Creatinine Clearance 0 mL/min (70-130); Calcium 9.6 mg/dL (7.8-10.44); Carbon Dioxide 24 mmol/L (23-31); Chloride 106 mmol/L (98-107); Globulin 3.6 g/dL (2.4-3.5); Glucose 143 mg/dL (80-115); Potassium 5.2 mmol/L (3.5-5.1); Protein, Total 7.3 g/dL (5.8-8.1); Sodium 139 mmol/L (136-145)
[2021-06-11] MEDS ORDERED: Piperacillin/Tazobactam 3.375 GM in Sodium Chloride 0.9% 100 ML IVPB SCH (18:15)
[2021-06-11 18:30] LABS: Bilirubin Negative (Negative); Blood, Urine Negative (Negative); Clarity Clear (Clear); Glucose, Urine (Dipstick) Normal (Negative); Ketone, Urine Negative (Negative); Leukocyte Negative Leu/uL (Negative); Nitrite Negative (Negative); Protein, Urine (Dipstick) Negative (Neg-Trace); Specific Gravity, Urine 1.006 (1.002-1.036); Urobilinogen Normal mg/dL (Less than 2)
[2021-06-11] MEDS ORDERED: Norepinephrine 8 MG/0.9% NS 250 ML ONE (18:34)
[2021-06-11] MEDS ORDERED: Vancomycin 1 GM/200 ML BAG ONE (18:51)
[2021-06-11 20:01] LABS: Lactic Acid 1.7 mmol/L (0.5-2.2)
[2021-06-11 20:56] LABS: SARS-CoV-2 NAA Rapid Test Not Detected (NotDetected)
[2021-06-12 03:59] VITALS: BMI 36.0
[2021-06-12] MEDS ORDERED: Piperacillin/Tazobactam 3.375 GM in Sodium Chloride 0.9% 100 ML IVPB SCH (04:00)
[2021-06-12] MEDS ORDERED: Ondansetron PF 4 MG/2 ML Vial IVP PRN (04:03)
[2021-06-12] MEDS ORDERED: Norepinephrine 8 MG/0.9% NS 250 ML IVPB SCH (04:03)
[2021-06-12] MEDS ORDERED: Vancomycin HCl 1 GM in Sodium Chloride 0.9% 250 ML 300 ML IVPB SCH (04:03)
[2021-06-12] MEDS ORDERED: Lactated Ringer's 1,000 ML IV SCH (04:03)
[2021-06-12] MEDS ORDERED: Enoxaparin Sodium 40 MG/0.4 ML SYRINGE SC SCH (04:15)
[2021-06-12] MEDS ORDERED: Famotidine/PF 20 mg/2ml Vial SLOW IVP SCH ×2 (04:15→21:00)
[2021-06-12] MEDS ORDERED: Flecainide 50 MG TAB PO SCH (04:15)
[2021-06-12] MEDS: Sodium Chloride 0.9% 1,000 ML IV SCH ×2 (04:20→10:37)
[2021-06-12] MEDS ORDERED: Cefepime 2 GM in Sodium Chloride 0.9% 100 ML IVPB SCH ×2 (05:00→13:00)
[2021-06-12] MEDS: Cholestyramine/Aspartame 4 gm Packet PO SCH ×2 (07:31→12:49)
[2021-06-12] MEDS ORDERED: Vancomycin 1 GM in Premix Bag 1 BAG IVPB SCH ×2 (08:00)
[2021-06-12] MEDS ORDERED: Cosyntropin 250 MCG VIAL SLOW IVP SCH (10:00)
[2021-06-12] MEDS: Lactated Ringer's 1,000 ML IV SCH ×2 (10:39→21:24)
[2021-06-12] MEDS: Liothyronine Sodium 25 MCG TAB PO SCH (10:40)
[2021-06-12 11:22] LABS: #Basophils 0.1 thou/uL (0.0-0.2); #Eosinphils 0.3 thou/uL (0.0-0.7); #Lymphocytes 2.7 thou/uL (1.20-3.40); #Monocytes 0.6 thou/uL (0.11-0.59); #Neutrophils 5.3 thou/uL (1.40-6.50); %Basophils 1.1 % (0.0-1.0); %Eosinophils 2.9 % (0.0-10.0); %Lymphocytes 30.3 % (21.0-51.0); %Monocytes 6.2 % (0.0-10.0); %Neutrophils 59.5 % (42.0-75.0); Hemoglobin 11.4 g/dL (12.0-16.0); Mean Corpuscular HGB CONC 34.5 g/dL (32.0-36.0); Mean Platelet Volume 5.9 fL (7.4-10.4); Platelet Count 361 thou/uL (130-400); RBC Distribution Width 11.6 % (11.5-14.5); Red Blood Cell (RBC) Count 3.27 mill/uL (4.20-5.40); White Blood Cell (WBC) Count 8.9 thou/uL (4.8-10.8)
[2021-06-12 11:44] LABS: Phosphorus 3.1 mg/dL (2.3-4.7)
[2021-06-12 11:46] LABS: Anion Gap 7 mmol/L (10-20); BUN (Urea Nitrogen) 12 mg/dL (9.8-20.1); Calc. Creatinine Clearance 119 mL/min (70-130); Calcium 8.6 mg/dL (7.8-10.44); Carbon Dioxide 28 mmol/L (23-31); Chloride 106 mmol/L (98-107); Glucose 93 mg/dL (80-115); Magnesium 1.8 mg/dL (1.6-2.6); Potassium 3.9 mmol/L (3.5-5.1); Sodium 137 mmol/L (136-145)
[2021-06-12] MEDS ORDERED: DULoxetine 30 MG CAP PO SCH (12:00)
[2021-06-12] MEDS ORDERED: PARoxetine 20 MG TAB PO SCH (12:00)
[2021-06-12] MEDS ORDERED: Ergocalciferol 1.25 MG(50,000 UNITS) CAP PO SCH (12:00)
[2021-06-12] MEDS ORDERED: Aspirin 325 MG TAB PO SCH (12:00)
[2021-06-12] MEDS ORDERED: Levothyroxine 150 MCG TAB PO SCH (12:15)
[2021-06-12] MEDS ORDERED: Cyanocobalamin 1000 MCG/ML VIAL IM SCH (12:30)
[2021-06-12] MEDS ORDERED: Magnesium 2 GM/50 ML 2 GM in Premix Bag 1 BAG IVPB SCH (15:45)
[2021-06-12] MEDS ORDERED: Cholestyramine/Aspartame 4 gm Packet PO SCH (17:30)
[2021-06-12] MEDS ORDERED: Melatonin 3 MG TAB PO SCH (21:00)
[2021-06-12] MEDS: Enoxaparin Sodium 40 MG/0.4 ML SYRINGE SC SCH (21:23)
[2021-06-12] MEDS: Flecainide 50 MG TAB PO SCH (21:23)
[2021-06-12] MEDS: Metoprolol Tartrate 25 MG TAB PO SCH (21:24)
[2021-06-12] MEDS: Melatonin 3 MG TAB PO SCH (21:24)
[2021-06-12] MEDS: Simvastatin 5 MG TAB PO SCH (21:24)
[2021-06-12] MEDS: Acetaminophen 325 MG TAB PO PRN (22:39)
[2021-06-13 05:07] LABS: #Basophils 0.1 thou/uL (0.0-0.2); #Eosinphils 0.3 thou/uL (0.0-0.7); #Lymphocytes 2.7 thou/uL (1.20-3.40); #Monocytes 0.7 thou/uL (0.11-0.59); #Neutrophils 4.4 thou/uL (1.40-6.50); %Basophils 1.4 % (0.0-1.0); %Eosinophils 3.7 % (0.0-10.0); %Lymphocytes 32.8 % (21.0-51.0); %Monocytes 8.4 % (0.0-10.0); %Neutrophils 53.6 % (42.0-75.0); Hemoglobin 11.3 g/dL (12.0-16.0); Mean Corpuscular Hemoglobin 35.6 pg (27.0-31.0); Platelet Count 357 thou/uL (130-400); RBC Distribution Width 11.5 % (11.5-14.5); Red Blood Cell (RBC) Count 3.18 mill/uL (4.20-5.40); White Blood Cell (WBC) Count 8.3 thou/uL (4.8-10.8)
[2021-06-13 05:26] LABS: Anion Gap 8 mmol/L (10-20); BUN (Urea Nitrogen) 12 mg/dL (9.8-20.1); Calc. Creatinine Clearance 128 mL/min (70-130); Calcium 8.6 mg/dL (7.8-10.44); Carbon Dioxide 27 mmol/L (23-31); Chloride 107 mmol/L (98-107); Glucose 94 mg/dL (80-115); Magnesium 2.1 mg/dL (1.6-2.6); Potassium 3.7 mmol/L (3.5-5.1); Sodium 138 mmol/L (136-145)
[2021-06-13] MEDS: Levothyroxine 150 MCG TAB PO SCH (06:13)
[2021-06-13] MEDS: Acetaminophen 325 MG TAB PO PRN (08:21)
[2021-06-13] MEDS: Cyanocobalamin (Vitamin B-12) 1,000 MCG TAB PO SCH (08:23)
[2021-06-13] MEDS: Aspirin 325 MG TAB PO SCH (08:23)
[2021-06-13] MEDS: Cholestyramine/Aspartame 4 gm Packet PO SCH ×3 (08:23→17:48)
[2021-06-13] MEDS: Cholecalciferol 1,000 UNITS (25 MCG) TAB PO SCH (08:23)
[2021-06-13] MEDS: DULoxetine 30 MG CAP PO SCH (08:24)
[2021-06-13] MEDS: Loratadine 10 MG TAB PO SCH (08:24)
[2021-06-13] MEDS: PARoxetine 20 MG TAB PO SCH (08:24)
[2021-06-13] MEDS: Multivit, Therapeutic 1 TAB PO SCH (08:24)
[2021-06-13] MEDS: Liothyronine Sodium 25 MCG TAB PO SCH (08:25)
[2021-06-13] MEDS: Metoprolol Tartrate 25 MG TAB PO SCH ×2 (08:26→21:44)
[2021-06-13] MEDS ORDERED: Aspirin 325 MG TAB PO SCH (09:00)
[2021-06-13] MEDS ORDERED: Non-Formulary Item 1 EACH (Cholecalciferol (Vitamin D3) [Vitamin D3] 5,000 UNITS Capsule) PO SCH (09:00)
[2021-06-13] MEDS ORDERED: NIFEdipine XL 60 MG TAB PO SCH (09:35)
[2021-06-13] MEDS ORDERED: NIFEdipine XL 30 MG TAB PO SCH (09:45)
[2021-06-13] MEDS: Flecainide 50 MG TAB PO SCH ×2 (11:12→21:45)
[2021-06-13] MEDS: Lactated Ringer's 1,000 ML IV SCH (15:38)
[2021-06-13] MEDS: Enoxaparin Sodium 40 MG/0.4 ML SYRINGE SC SCH (21:43)
[2021-06-13] MEDS: NIFEdipine XL 30 MG TAB PO SCH (21:44)
[2021-06-13] MEDS: Simvastatin 5 MG TAB PO SCH (21:44)
[2021-06-13] MEDS: Melatonin 3 MG TAB PO SCH (21:44)
[2021-06-14] MEDS: Acetaminophen 325 MG TAB PO PRN ×2 (00:26→06:29)
[2021-06-14] MEDS: Levothyroxine 150 MCG TAB PO SCH (05:33)
[2021-06-14] MEDS: Lactated Ringer's 1,000 ML IV SCH (05:33)
[2021-06-14] MEDS: Cholestyramine/Aspartame 4 gm Packet PO SCH ×2 (08:17→11:42)
[2021-06-14] MEDS ORDERED: FLU VACC QS2021-22(65YR UP)/PF 240 MCG/0.7 ML SYRINGE IM ONE (09:00)
[2021-06-14] MEDS ORDERED: traMADol HCl 50 MG TAB PO SCH (09:15)
[2021-06-14] MEDS: Cholecalciferol 1,000 UNITS (25 MCG) TAB PO SCH (09:25)
[2021-06-14] MEDS: DULoxetine 30 MG CAP PO SCH (09:25)
[2021-06-14] MEDS: Aspirin 325 MG TAB PO SCH (09:25)
[2021-06-14] MEDS: Loratadine 10 MG TAB PO SCH (09:25)
[2021-06-14] MEDS: PARoxetine 20 MG TAB PO SCH (09:26)
[2021-06-14] MEDS: Multivit, Therapeutic 1 TAB PO SCH (09:26)
[2021-06-14] MEDS: Cyanocobalamin (Vitamin B-12) 1,000 MCG TAB PO SCH (09:26)
[2021-06-14] MEDS: NIFEdipine XL 30 MG TAB PO SCH (09:26)
[2021-06-14] MEDS: Flecainide 50 MG TAB PO SCH (09:27)
[2021-06-14] MEDS: Liothyronine Sodium 25 MCG TAB PO SCH (09:27)
[2021-06-14] MEDS: Metoprolol Tartrate 25 MG TAB PO SCH (09:27)
[2021-06-14 12:03] VITALS: BP 131/75; TEMP 98.4
== END 2021-06-14 15:20 | disposition home or self-care (01) | DRG 315 ==
LOC: ERS 16:35 → ERHOLD 18:33 → 2NO 06-12 03:23
PROVIDERS: ADMIT Internal Medicine; ATTEND Internal Medicine
PROC: 3E033XZ Introduction of Vasopressor into Peripheral Vein, Percutaneous Approach (ICD-10-PCS; principal; 2021-06-11)
DX: I95.89 Other hypotension (principal); I47.2 Ventricular tachycardia; N17.9 Acute kidney failure, unspecified; E86.0 Dehydration; Z20.822 Contact with and (suspected) exposure to COVID-19; K21.9 Gastro-esophageal reflux disease without esophagitis; E03.9 Hypothyroidism, unspecified; F41.9 Anxiety disorder, unspecified; F32.9 Major depressive disorder, single episode, unspecified; N18.2 Chronic kidney disease, stage 2 (mild); I12.9 Hypertensive chronic kidney disease with stage 1 through stage 4 chronic kidney disease, or unspecified chronic kidney disease; E83.42 Hypomagnesemia; E53.8 Deficiency of other specified B group vitamins; E66.9 Obesity, unspecified; E78.5 Hyperlipidemia, unspecified; Z88.2 Allergy status to sulfonamides; Z88.1 Allergy status to other antibiotic agents; Z88.8 Allergy status to other drugs, medicaments and biological substances; Z79.82 Long term (current) use of aspirin; Z79.899 Other long term (current) drug therapy; Z79.890 Hormone replacement therapy; Z95.810 Presence of automatic (implantable) cardiac defibrillator; Z90.49 Acquired absence of other specified parts of digestive tract; Z68.36 Body mass index [BMI] 36.0-36.9, adult
CPT/HCPCS: 36415; 36556; 71045; 80048; 80053; 80400; 81003; 82607; 82746; 83605; 83735; 84100; 84145; 84484; 85025; 86140; 87040; 87086; 93005; 93306; 96365; 96366; 96368; J0692; J0834; J1650; J2543; J3370; J3420; J3475; J3490; J7050; J7120; S0028; U0002

== ENCOUNTER 2022-09-14 13:01 | Outpatient (CLI) | payer MEDICARE | END 2022-09-14 13:02 | disposition home or self-care (01) | LOC: RAD 13:01 | PROVIDERS: ATTEND Internal Medicine Critical Care Medicine | DX: R06.00 Dyspnea, unspecified (principal) | CPT/HCPCS: 71046 ==

== ENCOUNTER 2022-10-12 13:20 | Outpatient (CLI) | payer MEDICARE | END 2022-10-12 13:21 | disposition home or self-care (01) | LOC: BICMAMMO 13:20 | PROVIDERS: ATTEND Obstetrics & Gynecology | DX: Z13.820 Encounter for screening for osteoporosis (principal); Z78.0 Asymptomatic menopausal state | CPT/HCPCS: 77080 ==

== ENCOUNTER 2023-03-23 06:38 | Day surgery (SDC) | payer MEDICARE ==
[2023-03-19 13:58] VITALS: BMI 35.2
[2023-03-23] MEDS ORDERED: PROPOFOL 200 MG/20 ML VIAL ONE (08:38)
[2023-03-23] MEDS ORDERED: Lidocaine 1% PF 5 ML VIAL ONE (08:38)
== END 2023-03-23 09:58 | disposition home or self-care (01) ==
LOC: SDC 06:38
PROVIDERS: ATTEND Internal Medicine Gastroenterology
PROC: 0DJD8ZZ Inspection of Lower Intestinal Tract, Via Natural or Artificial Opening Endoscopic (ICD-10-PCS; principal; 2023-03-23)
DX: Z12.11 Encounter for screening for malignant neoplasm of colon (principal); I10 Essential (primary) hypertension; K21.9 Gastro-esophageal reflux disease without esophagitis; E03.9 Hypothyroidism, unspecified; E78.5 Hyperlipidemia, unspecified; F41.8 Other specified anxiety disorders; M19.90 Unspecified osteoarthritis, unspecified site; Z90.49 Acquired absence of other specified parts of digestive tract; Z86.010 Personal history of colon polyps; Z79.82 Long term (current) use of aspirin; Z79.890 Hormone replacement therapy; Z88.2 Allergy status to sulfonamides; Z91.048 Other nonmedicinal substance allergy status; Z79.899 Other long term (current) drug therapy; Z95.810 Presence of automatic (implantable) cardiac defibrillator; Z98.0 Intestinal bypass and anastomosis status
CPT/HCPCS: J2704

== ENCOUNTER 2024-08-07 18:08 | Inpatient (IN) | payer MEDICARE ==
[2024-08-07 19:40] LABS: #Basophils 0.11 10x3/uL (0.0-0.2); %Basophils 1.1 % (0.0-1.0); %Eosinophils 1.9 % (0.0-10.0); %Lymphocytes 31.9 % (21.0-51.0); %Monocytes 10.1 % (0.0-10.0); %Neutrophils 54.8 % (42.0-75.0); Hematocrit 38.7 % (36.0-47.0); Hemoglobin 13.1 g/dL (12.0-16.0); Mean Corpuscular HGB CONC 33.9 g/dL (32.0-36.0); Mean Corpuscular Hemoglobin 32.4 pg (27.0-31.0); Mean Corpuscular Volume 95.8 fL (78.0-98.0); Mean Platelet Volume 9.2 fL (7.4-10.4); Platelet Count 377 10x3/uL (130-400); RBC Distribution Width 12.9 % (11.5-14.5); Red Blood Cell (RBC) Count 4.04 mill/uL (4.20-5.40)
[2024-08-07] MEDS ORDERED: Acetaminophen 325 MG TAB ONE (19:45)
[2024-08-07 19:56] LABS: ALT (SGPT) 25 U/L (8-55); AST (SGOT) 23 U/L (5-34); Albumin 3.6 g/dL (3.4-4.8); Alkaline Phosphatase 68 U/L (40-110); Anion Gap 13 mmol/L (10-20); BUN (Urea Nitrogen) 10 mg/dL (9.8-20.1); Bilirubin, Total 0.3 mg/dL (0.2-1.2); Calc. Creatinine Clearance 0 mL/min (70-130); Calcium 8.8 mg/dL (7.8-10.44); Carbon Dioxide 24 mmol/L (23-31); Chloride 105 mmol/L (98-107); Estimated GFR 85; Globulin 3.7 g/dL (2.4-3.5); Glucose 85 mg/dL (80-115); Lipase 22 U/L (8-78); Magnesium 1.8 mg/dL (1.6-2.6); Potassium 4.1 mmol/L (3.5-5.1); Protein, Total 7.3 g/dL (5.8-8.1); Sodium 138 mmol/L (136-145)
[2024-08-07 20:01] LABS: Troponin I Less than 0.010 ng/mL (< 0.028)
[2024-08-07] MEDS ORDERED: Acetaminophen 650 MG Suppository PR PRN (21:47)
[2024-08-07] MEDS ORDERED: Ondansetron ODT 4 MG TAB PO PRN (21:47)
[2024-08-07] MEDS ORDERED: Nitroglycerin 0.4 MG TAB (25 Tab Bottle) SL PRN (21:47)
[2024-08-07] MEDS ORDERED: Ipratropium/Albuterol 3 ML NEB NEB PRN (22:45)
[2024-08-07 22:47] LABS: Troponin I Less than 0.010 ng/mL (< 0.028)
[2024-08-08 01:16] LABS: Troponin I Less than 0.010 ng/mL (< 0.028)
[2024-08-08 02:28] VITALS: BMI 34.4
[2024-08-08] MEDS: Rosuvastatin 5 MG TAB PO SCH ×2 (02:38→20:13)
[2024-08-08] MEDS: Cyanocobalamin 1000 MCG/ML VIAL IM SCH (02:38)
[2024-08-08 04:27] LABS: #Basophils 0.12 10x3/uL (0.0-0.2); %Basophils 1.5 % (0.0-1.0); %Eosinophils 3.1 % (0.0-10.0); %Lymphocytes 41.6 % (21.0-51.0); %Neutrophils 44.6 % (42.0-75.0); Hematocrit 37.6 % (36.0-47.0); Hemoglobin 12.8 g/dL (12.0-16.0); Mean Corpuscular Hemoglobin 32.7 pg (27.0-31.0); Mean Corpuscular Volume 96.2 fL (78.0-98.0); Mean Platelet Volume 9.1 fL (7.4-10.4); Platelet Count 377 10x3/uL (130-400); Red Blood Cell (RBC) Count 3.91 mill/uL (4.20-5.40)
[2024-08-08 04:49] LABS: Hemoglobin A1c 5.1 % (4.0-6.0)
[2024-08-08 04:53] LABS: Anion Gap 10 mmol/L (10-20); BUN (Urea Nitrogen) 8 mg/dL (9.8-20.1); Calc. Creatinine Clearance 129 mL/min (70-130); Calcium 8.7 mg/dL (7.8-10.44); Carbon Dioxide 25 mmol/L (23-31); Cardiac Risk 2.9 (Less than 4.5); Chloride 110 mmol/L (98-107); Cholesterol 126 mg/dl (< 200 Desired); Estimated GFR 91; Glucose 93 mg/dL (80-115); HDL Cholesterol 43 mg/dL (>60 Neg Risk); LDL Cholesterol, Calculated 59 mg/dL; Potassium 4.3 mmol/L (3.5-5.1); Sodium 141 mmol/L (136-145); Triglycerides 122 mg/dL (Less than 150)
[2024-08-08] MEDS: Magnesium 2 GM/50 ML(in water) 2 GM in Premix 1 BAG IVPB SCH (05:49)
[2024-08-08] MEDS: Levothyroxine 150 MCG TAB PO SCH (05:49)
[2024-08-08] MEDS: Cholestyramine/Aspartame 4 gm Packet PO SCH (09:12)
[2024-08-08] MEDS: Enoxaparin 40 MG (0.4 mL) SYRINGE SC SCH (09:16)
[2024-08-08] MEDS: Acetaminophen 325 MG TAB PO PRN (09:16)
[2024-08-08] MEDS: Aspirin 325 MG TAB PO SCH (09:17)
[2024-08-08] MEDS: Prenatal Vitamin 1 TAB PO SCH (09:17)
[2024-08-08] MEDS: Cholecalciferol 1,000 UNITS (25 MCG) TAB PO SCH (09:17)
[2024-08-08] MEDS: NIFEdipine XL 30 MG ER.TAB PO SCH (09:17)
[2024-08-08] MEDS: PARoxetine 20 MG TAB PO SCH (09:17)
[2024-08-08] MEDS: traMADol HCl 50 MG TAB PO PRN (09:17)
[2024-08-08] MEDS: Liothyronine Sodium 5 MCG TAB PO SCH (09:17)
[2024-08-08] MEDS: Ergocalciferol 1.25 MG(50,000 UNITS) CAP PO SCH (09:17)
[2024-08-08] MEDS: DULoxetine 30 MG CAP PO SCH (09:17)
[2024-08-08] MEDS: Loratadine 10 MG TAB PO SCH (09:17)
[2024-08-08] MEDS: Famotidine 20 MG TAB PO SCH (09:17)
[2024-08-08] MEDS: Pantoprazole 40 MG DR.TAB PO SCH (09:17)
[2024-08-08] MEDS: HYDROcodone/Acetaminophen 5/325 mg Tablet PO PRN (13:47)
[2024-08-08 14:34] LABS: Magnesium 2.3 mg/dL (1.6-2.6)
[2024-08-08] MEDS: Ketorolac Tromethamine 30 MG (1 mL) VIAL IVP SCH (16:08)
[2024-08-08] MEDS: Morphine 4 MG/ML VIAL SLOW IVP SCH (16:09)
[2024-08-08 17:09] LABS: #Basophils 0.17 10x3/uL (0.0-0.2); %Basophils 1.2 % (0.0-1.0); %Eosinophils 0.8 % (0.0-10.0); %Lymphocytes 15.7 % (21.0-51.0); Hematocrit 39.6 % (36.0-47.0); Hemoglobin 13.4 g/dL (12.0-16.0); Mean Corpuscular HGB CONC 33.8 g/dL (32.0-36.0); Mean Corpuscular Hemoglobin 32.5 pg (27.0-31.0); Mean Corpuscular Volume 96.1 fL (78.0-98.0); Mean Platelet Volume 8.9 fL (7.4-10.4); Platelet Count 384 10x3/uL (130-400); RBC Distribution Width 13.1 % (11.5-14.5); Red Blood Cell (RBC) Count 4.12 mill/uL (4.20-5.40)
[2024-08-08] MEDS: HYDROmorphone 1 MG/ML SYRINGE SLOW IVP SCH (17:09)
[2024-08-08] MEDS: HYDROmorphone 0.5 MG/0.5 ML SYRINGE SLOW IVP SCH ×2 (17:27→23:05)
[2024-08-08 17:28] LABS: Anion Gap 13 mmol/L (10-20); BUN (Urea Nitrogen) 11 mg/dL (9.8-20.1); Calc. Creatinine Clearance 98 mL/min (70-130); Calcium 9.1 mg/dL (7.8-10.44); Carbon Dioxide 24 mmol/L (23-31); Chloride 110 mmol/L (98-107); Estimated GFR 66; Glucose 88 mg/dL (80-115); Potassium 4.8 mmol/L (3.5-5.1); Sodium 142 mmol/L (136-145)
[2024-08-08] MEDS: Calcium Carbonate 600 MG + Vit D TAB PO SCH (20:13)
[2024-08-08] MEDS: QUEtiapine 25 MG TAB PO SCH (20:13)
[2024-08-08] MEDS: Melatonin 3 MG TAB PO SCH (20:13)
[2024-08-09 04:53] LABS: #Eosinophils Less than 0.03 10x3/uL (0.0-0.7); %Basophils 0.7 % (0.0-1.0); %Eosinophils 0.1 % (0.0-10.0); %Lymphocytes 13.6 % (21.0-51.0); %Monocytes 12.6 % (0.0-10.0); %Neutrophils 72.6 % (42.0-75.0); Hematocrit 37.2 % (36.0-47.0); Hemoglobin 12.6 g/dL (12.0-16.0); Mean Corpuscular HGB CONC 33.9 g/dL (32.0-36.0); Mean Corpuscular Hemoglobin 32.6 pg (27.0-31.0); Mean Corpuscular Volume 96.4 fL (78.0-98.0); Mean Platelet Volume 9.4 fL (7.4-10.4); Platelet Count 332 10x3/uL (130-400); RBC Distribution Width 13.2 % (11.5-14.5); Red Blood Cell (RBC) Count 3.86 mill/uL (4.20-5.40)
[2024-08-09 05:13] LABS: Anion Gap 11 mmol/L (10-20); BUN (Urea Nitrogen) 12 mg/dL (9.8-20.1); Calc. Creatinine Clearance 101 mL/min (70-130); Calcium 8.7 mg/dL (7.8-10.44); Carbon Dioxide 26 mmol/L (23-31); Chloride 103 mmol/L (98-107); Estimated GFR 68; Glucose 119 mg/dL (80-115); Potassium 5.1 mmol/L (3.5-5.1); Sodium 135 mmol/L (136-145)
[2024-08-09] MEDS: HYDROmorphone 0.5 MG/0.5 ML SYRINGE SLOW IVP SCH ×2 (09:29→17:36)
[2024-08-09] MEDS: QUEtiapine 25 MG TAB PO SCH (10:20)
[2024-08-09] MEDS: Ketorolac Tromethamine 30 MG (1 mL) VIAL IVP SCH ×2 (10:20→13:46)
[2024-08-09] MEDS: Lorazepam 2 MG/ML VIAL SLOW IVP SCH (10:20)
[2024-08-10 05:14] LABS: #Basophils 0.05 10x3/uL (0.0-0.2); %Basophils 0.4 % (0.0-1.0); %Eosinophils 0.3 % (0.0-10.0); %Lymphocytes 13.7 % (21.0-51.0); %Monocytes 11.7 % (0.0-10.0); %Neutrophils 73.5 % (42.0-75.0); Hematocrit 33.8 % (36.0-47.0); Hemoglobin 11.7 g/dL (12.0-16.0); Mean Corpuscular HGB CONC 34.6 g/dL (32.0-36.0); Mean Corpuscular Hemoglobin 32.8 pg (27.0-31.0); Mean Corpuscular Volume 94.7 fL (78.0-98.0); Mean Platelet Volume 9.5 fL (7.4-10.4); Platelet Count 262 10x3/uL (130-400); RBC Distribution Width 12.9 % (11.5-14.5); Red Blood Cell (RBC) Count 3.57 mill/uL (4.20-5.40)
[2024-08-10 05:34] LABS: Anion Gap 10 mmol/L (10-20); BUN (Urea Nitrogen) 14 mg/dL (9.8-20.1); Calc. Creatinine Clearance 112 mL/min (70-130); Calcium 8.6 mg/dL (7.8-10.44); Carbon Dioxide 23 mmol/L (23-31); Chloride 99 mmol/L (98-107); Estimated GFR 77; Glucose 119 mg/dL (80-115); Potassium 3.9 mmol/L (3.5-5.1); Sodium 128 mmol/L (136-145)
[2024-08-10] MEDS: Ondansetron PF 4 MG/2 ML Vial IVP PRN (13:47)
[2024-08-11 05:23] LABS: #Basophils 0.04 10x3/uL (0.0-0.2); %Basophils 0.4 % (0.0-1.0); %Eosinophils 2.2 % (0.0-10.0); %Lymphocytes 15.5 % (21.0-51.0); %Monocytes 10.5 % (0.0-10.0); %Neutrophils 71.1 % (42.0-75.0); Hematocrit 33.5 % (36.0-47.0); Hemoglobin 11.1 g/dL (12.0-16.0); Mean Corpuscular HGB CONC 33.1 g/dL (32.0-36.0); Mean Corpuscular Hemoglobin 32.4 pg (27.0-31.0); Mean Corpuscular Volume 97.7 fL (78.0-98.0); Mean Platelet Volume 9.8 fL (7.4-10.4); Platelet Count 291 10x3/uL (130-400); Red Blood Cell (RBC) Count 3.43 mill/uL (4.20-5.40)
[2024-08-11] MEDS: Ketorolac Tromethamine 30 MG (1 mL) VIAL IVP PRN (05:32)
[2024-08-11 06:21] LABS: Anion Gap 12 mmol/L (10-20); BUN (Urea Nitrogen) 12 mg/dL (9.8-20.1); Calc. Creatinine Clearance 114 mL/min (70-130); Calcium 8.5 mg/dL (7.8-10.44); Carbon Dioxide 25 mmol/L (23-31); Chloride 102 mmol/L (98-107); Estimated GFR 79; Glucose 95 mg/dL (80-115); Potassium 4.5 mmol/L (3.5-5.1); Sodium 134 mmol/L (136-145)
[2024-08-11 18:30] VITALS: BP 121/72; TEMP 97.3
[2024-08-11] MEDS ORDERED: Docusate 100 MG CAP PO SCH (21:00)
== END 2024-08-11 18:10 | DRG 313 ==
LOC: ERS 18:08 → 2NO 21:43 → INTOOBSV 21:43 → OBSVTOIN 08-09 08:45 → MSONC 08-09 16:03
PROVIDERS: ADMIT Student in an Organized Health Care Education/Training Program; ATTEND Internal Medicine
DX: R07.9 Chest pain, unspecified (principal); G93.41 Metabolic encephalopathy; E87.1 Hypo-osmolality and hyponatremia; I45.10 Unspecified right bundle-branch block; I44.0 Atrioventricular block, first degree; I10 Essential (primary) hypertension; E78.5 Hyperlipidemia, unspecified; E55.9 Vitamin D deficiency, unspecified; Z88.1 Allergy status to other antibiotic agents; Z90.49 Acquired absence of other specified parts of digestive tract; E03.9 Hypothyroidism, unspecified; E53.8 Deficiency of other specified B group vitamins; I95.1 Orthostatic hypotension; G47.00 Insomnia, unspecified; R41.0 Disorientation, unspecified; R53.81 Other malaise; F41.9 Anxiety disorder, unspecified; F32.A Depression, unspecified; Z88.2 Allergy status to sulfonamides; E66.01 Morbid (severe) obesity due to excess calories; Z68.34 Body mass index [BMI] 34.0-34.9, adult; M17.0 Bilateral primary osteoarthritis of knee; M71.22 Synovial cyst of popliteal space [Baker], left knee; M25.461 Effusion, right knee
CPT/HCPCS: 36415; 71045; 72170; 80048; 80053; 80061; 83036; 83690; 83735; 83880; 84439; 84443; 84484; 85025; 93005; 93010; 96372; 96374; 96375; 96376; G0378; J1171; J1650; J1885; J2060; J2270; J2405; J3420; J3475

== ENCOUNTER 2024-08-18 13:22 | Outpatient (CLI) | payer MEDICARE ==
[2024-08-18 14:49] LABS: #Basophils 0.14 10x3/uL (0.0-0.2); %Basophils 1.4 % (0.0-1.0); %Eosinophils 3.9 % (0.0-10.0); %Lymphocytes 32.8 % (21.0-51.0); %Monocytes 9.6 % (0.0-10.0); %Neutrophils 51.7 % (42.0-75.0); Hemoglobin 13.1 g/dL (12.0-16.0); Mean Corpuscular HGB CONC 32.8 g/dL (32.0-36.0); Mean Corpuscular Hemoglobin 32.3 pg (27.0-31.0); Mean Corpuscular Volume 98.5 fL (78.0-98.0); Mean Platelet Volume 8.8 fL (7.4-10.4); Platelet Count 550 10x3/uL (130-400); RBC Distribution Width 13.1 % (11.5-14.5); Red Blood Cell (RBC) Count 4.06 mill/uL (4.20-5.40)
[2024-08-18 15:07] LABS: Prothrombin Time 13.2 sec (12.0-14.7)
[2024-08-18 15:08] LABS: Bilirubin Negative (Negative); Blood, Urine Negative (Negative); Clarity Clear (Clear); Glucose, Urine (Dipstick) Normal (Negative); Ketone, Urine Negative (Negative); Leukocyte Negative Leu/uL (Negative); Nitrite Negative (Negative); Protein, Urine (Dipstick) 20 mg/dL (Neg-Trace); RBC/HPF 0-3 HPF (0-3); Specific Gravity, Urine 1.031 (1.002-1.036); Urobilinogen Normal mg/dL (Less than 2); WBC/HPF 0-3 HPF (0-3)
[2024-08-18 15:09] LABS: Bacteria/HPF Rare-Few HPF (None Seen)
[2024-08-18 15:10] LABS: Anion Gap 13 mmol/L (10-20); BUN (Urea Nitrogen) 14 mg/dL (9.8-20.1); Calc. Creatinine Clearance 0 mL/min (70-130); Calcium 9.2 mg/dL (7.8-10.44); Carbon Dioxide 24 mmol/L (23-31); Chloride 109 mmol/L (98-107); Estimated GFR 69; Glucose 94 mg/dL (80-115); Potassium 4.4 mmol/L (3.5-5.1); Sodium 142 mmol/L (136-145)
== END 2024-08-18 13:23 | disposition home or self-care (01) ==
LOC: LABBT 13:22
PROVIDERS: ATTEND Orthopaedic Surgery
DX: Z01.812 Encounter for preprocedural laboratory examination (principal); M17.12 Unilateral primary osteoarthritis, left knee
CPT/HCPCS: 80048; 81001; 85025; 85610; 87081